=== PATIENT | male | born 1950 | race Hispanic/Latino ===

== ENCOUNTER 2017-05-18 08:27 | Day surgery (SDC) | payer MEDICAID ==
[2017-05-18 09:24] VITALS: BMI 27.1
[2017-05-18 09:46] VITALS: TEMP 98.2
[2017-05-18] MEDS ORDERED: Lactated Ringer's 500 ML IV ONE (10:59)
[2017-05-18] MEDS ORDERED: Propofol 10 mg/ml Inj (20 ML) ONE ×4 (11:19→12:21)
[2017-05-18] MEDS ORDERED: Lactated Ringer's 500 ML IV SCH (11:30)
[2017-05-18 13:17] VITALS: BP 116/63; PULSE 57; RESP 15; O2SAT 100
== END 2017-05-18 13:50 | disposition home or self-care (01) ==
LOC: C.ENDO 08:27
PROVIDERS: ATTEND Internal Medicine Gastroenterology
DX: K92.1 Melena (principal); D12.2 Benign neoplasm of ascending colon; D12.4 Benign neoplasm of descending colon; D12.7 Benign neoplasm of rectosigmoid junction; D12.3 Benign neoplasm of transverse colon
CPT/HCPCS: 45385; 88305; J2704; J3010; J7120

== ENCOUNTER 2017-12-04 11:00 | Inpatient (IN) | payer MEDICAID, MEDICARE ==
[2017-12-04 11:01] VITALS: BMI 26.9
--- NOTE | 2017-12-04 12:08 | C.PDOC ---
History Of Present Illness 67 y/o male with PMHx of Colon cancer with colectomy in 07/2017 presents to ED with complaints of urinary retention for 3 days. Pt notes it started with dribbling and straining and today the straining was not helping. Patient states this is the first time symptoms occurred. Denies fever, testicular pain, penile discharge, abdominal pain, back pain or any other complaints at this time. Time Seen by Provider: 12/04/17 11:25 Chief Complaint (Nursing): Male Genitourinary History Per: Patient History/Exam Limitations: no limitations Onset/Duration Of Symptoms: Days Current Symptoms Are (Timing): Still Present Associated Symptoms: Urinary Symptoms Past Medical History Reviewed: Historical Data, Nursing Documentation, Vital Signs Vital Signs: Last Vital Signs Temp 98 F 12/04/17 14:10 Pulse 88 12/04/17 14:10 Resp 20 12/04/17 14:10 BP 155/84 H 12/04/17 14:10 Pulse Ox 99 12/04/17 17:51 - Medical History PMH: HTN Other Surgeries: prostate cancer, CVA - [facility] Procedures INSERTION OF INFUSION DEVICE INTO ABD WALL, PERC APPROACH (08/04/17) RELEASE PERITONEUM, PERCUTANEOUS ENDOSCOPIC APPROACH (08/04/17) RESECTION OF SIGMOID COLON, OPEN APPROACH (08/04/17) ROBOTIC ASSISTED PROCEDURE OF TRUNK REGION, ENDO (08/04/17) Family History: States: No Known Family Hx - Social History Hx Alcohol Use: Yes Hx Substance Use: No - Immunization History Hx Tetanus Toxoid Vaccination: No Hx Influenza Vaccination: No Hx Pneumococcal Vaccination: No Review Of Systems Constitutional: Negative for: Fever, Chills Gastrointestinal: Negative for: Nausea, Vomiting, Abdominal Pain Genitourinary: Positive for: Other (urinary Retention ). Negative for: Penile Discharge, Penile Pain Musculoskeletal: Negative for: Back Pain Skin: Negative for: Rash Physical Exam - Physical Exam Appears: Non-toxic, Other (Uncomfortable) Skin: Warm, Dry, No Rash Head: Atraumatic, Normacephalic Eye(s): bilateral: Normal Inspection, EOMI Nose: Normal Oral Mucosa: Moist Neck: Normal ROM, Supple Chest: Symmetrical Cardiovascular: Rhythm Regular Respiratory: Normal Breath Sounds, No Accessory Muscle Use, No Rales, No Rhonchi , No Wheezing Gastrointestinal/Abdominal: Soft, Tenderness (suprapubic), Distention, No Guarding, No Rebound Back: No CVA Tenderness Extremity: Normal ROM, Capillary Refill (<2 seconds) Neurological/Psych: Oriented x3 ED Course And Treatment - Laboratory Results Result Diagrams: 12/04/17 12:16 12/04/17 12:16 O2 Sat by Pulse Oximetry: 99 (RA) Pulse Ox Interpretation: Normal Progress Note: Blood work and UA ordered. Devries inserted by RN, 1+ liter drained. Case discussed with Dr Ambrose, agreed upon plan and admission. Disposition - Disposition Disposition: HOSPITALIZED Disposition Time: 14:50 Condition: STABLE - Clinical Impression Clinical Impression: Urinary retention, Hyponatremia - PA / WAREHOUSE PERSON / Resident Statement MD/DO has reviewed & agrees with the documentation as recorded. - Scribe Statement The provider has reviewed the documentation as recorded by the Ulicesibkena Miguel All medical record entries made by the Liborio were at my direction and personally dictated by me. I have reviewed the chart and agree that the record accurately reflects my personal performance of the history, physical exam, medical decision making, and the department course for this patient. I have also personally directed, reviewed, and agree with the discharge instructions and disposition.
[2017-12-04 12:19] LABS: BASO # 0.1 K/uL (0.0-0.2); BASO % 0.6 % (0.0-2.0); EOS # 0.2 K/uL (0.0-0.7); EOS % 1.9 % (0.0-4.0); HEMOGLOBIN 12.9 g/dL (12.0-18.0); LYMPH # 1.6 K/uL (1.0-4.3); LYMPH % 19.8 % (20.0-40.0); MEAN CELL VOLUME 89.8 fL (80.0-94.0); MEAN CORPUSCULAR HEMOGLOBIN 32.1 pg (27.0-31.0); MEAN CORPUSCULAR HGB CONC 35.7 g/dL (33.0-37.0); MEAN PLATELET VOLUME 8.9 fL (7.2-11.7); MONO # 0.8 K/uL (0.0-0.8); MONO % 9.6 % (0.0-10.0); NEUT # 5.6 K/uL (1.8-7.0); NEUT % 68.1 % (50.0-75.0); RBC 4.02 Mil/uL (4.40-5.90); WHITE BLOOD COUNT 8.2 K/uL (4.8-10.8)
[2017-12-04 12:25] LABS: URINE BACTERIA MOD (<OCC); URINE BILIRUBIN NEGATIVE (NEGATIVE); URINE BLOOD 2+ (NEGATIVE); URINE CLARITY Clear (Clear); URINE COLOR Yellow (YELLOW); URINE GLUCOSE (UA) NORMAL (Normal); URINE LEUKOCYTE ESTERASE 2+ Leu/uL (Negative); URINE NITRATE NEGATIVE (NEGATIVE); URINE PROTEIN NEGATIVE (NEGATIVE); URINE UROBILINOGEN NORMAL mg/dL (0.2-1.0)
[2017-12-04 13:50] LABS: ALB/GLOB RATIO 1.3 (1.0-2.1); ALBUMIN 3.9 g/dL (3.5-5.0); ALT/SGPT 34 U/L (21-72); AST/SGOT 50 U/L (17-59); BLOOD UREA NITROGEN 12 mg/dL (9-20); CALCIUM 7.9 mg/dl (8.6-10.4); GFR AFRICAN-AMERICAN > 60; GFR NON-AFRICAN AMERICAN > 60
[2017-12-04] MEDS ORDERED: Sodium Chloride 0.9% 1,000 ML IV ONE (13:51)
--- NOTE | 2017-12-04 14:44 | CP.PCM.HP ---
History of Present Illness - History of Present Illness History of Present Illness: Admission Note for Dr. Ambrose's Service This is a 67 y/o male with a hx of colon CA s/p resection w/ Dr. Dave in July 2017 coming in with urinary retention and found to be hyponatremic 119 in the ED. Jamshid states that for the last 3 days he has had trouble urinating in the following way- the urine does not expel easily and he must strain to get the urine out. He notes a weak stream despite straining. He states that he feels like he needs to urinate constantly. He also notes that he has been drinking more beer than usual. He states that he drinks 3-6 beers twice a weekly. Jamshid does have a questionable history of BPH. Although he has never seen a urologist or taken any medications for this, he does remember his doctor telling him he had an enlarged prostate. PMD: Dr. Finney Oncologist: Dr. 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, HTN PSHx: colon resection 07/2017, R knee surgery post trauma, b/l cataracts Medications: Norvasc 5mg PO daily; Lisinopril-HCTZ Allergies: NKDA Social: drinks 3-6 beers 2x/week, smokes cigarettes when he drinks only x many years, no drug use, lives alone at home Family hx: Dad prostate CA, Mom of CVA, Twin brother of metastatic cancer 4months ago Present on Admission - Present on Admission Any Indicators Present on Admission: No History of DVT/PE: No History of Uncontrolled Diabetes: No Review of Systems - Constitutional Constitutional: absent: Chills, Fever, Weight Loss - EENT Eyes: absent: Blurred Vision, Change in Vision Nose/Mouth/Throat: absent: Nasal Congestion, Nasal Discharge - Cardiovascular Cardiovascular: absent: Chest Pain, Diaphoresis, Dyspnea - Respiratory Respiratory: absent: Cough, Dyspnea - Gastrointestinal Gastrointestinal: absent: Abdominal Pain, Constipation, Diarrhea - Genitourinary Genitourinary: As Per HPI, Urinary Frequency, Urinary Hesitance, Bladder Distension. absent: Dysuria, Flank Pain, Hematuria, Pyuria - Musculoskeletal Musculoskeletal: absent: Back Pain, Joint Swelling - Neurological Neurological: absent: Confusion, Dizziness, Syncope, Vertigo Past Patient History - Infectious Disease Hx of Infectious Diseases: None - Past Medical History & Family History Past Medical History?: Yes - Past Social History Smoking Status: Current Some Days Smoker - CARDIAC Hx Hypertension: Yes - PULMONARY Hx Respiratory Disorders: No - NEUROLOGICAL Hx Neurological Disorder: No - HEENT Hx HEENT Problems: Yes Hx Cataracts: Yes (TWILA. REMOVED) - RENAL Hx Chronic Kidney Disease: No - ENDOCRINE/METABOLIC Hx Endocrine Disorders: No - HEMATOLOGICAL/ONCOLOGICAL Hx Blood Disorders: Yes Hx Cancer: Yes (COLON) - INTEGUMENTARY Hx Dermatological Problems: No - GASTROINTESTINAL Hx Gastrointestinal Disorders: Yes - GENITOURINARY/GYNECOLOGICAL Hx Genitourinary Disorders: No - PSYCHIATRIC Hx Substance Use: No - SURGICAL HISTORY Other/Comment: colon ca removal - ANESTHESIA Hx Anesthesia: Yes Hx Anesthesia Reactions: No Hx Malignant Hyperthermia: No Meds Allergies/Adverse Reactions: Allergies Allergy/AdvReac Type Severity Reaction Status Date / Time No Known Allergies Allergy Verified 05/18/17 09:22 Physical Exam - Head Exam Head Exam: ATRAUMATIC, NORMOCEPHALIC - Eye Exam Eye Exam: EOMI, Normal appearance - ENT Exam ENT Exam: Mucous Membranes Moist - Respiratory Exam Respiratory Exam: Clear to Auscultation Bilateral, NORMAL BREATHING PATTERN. absent: Rhonchi, Wheezes - Cardiovascular Exam Cardiovascular Exam: REGULAR RHYTHM, +S1, +S2 - GI/Abdominal Exam GI & Abdominal Exam: Normal Bowel Sounds, Soft. absent: Distended, Tenderness Additional comments: suprapubic fullness sensation with palpation - Exam Additional comments: ryan in place - Extremities Exam Extremities exam: Negative for: pedal edema, tenderness - Back Exam Back exam: absent: CVA tenderness (L), CVA tenderness (R) - Neurological Exam Neurological exam: Alert, Oriented x3 - Psychiatric Exam Psychiatric exam: Normal Affect, Normal Mood - Skin Skin Exam: Dry, Warm Results - Vital Signs Recent Vital Signs: Last Vital Signs Temp 98 F 12/04/17 14:10 Pulse 88 12/04/17 14:10 Resp 20 12/04/17 14:10 BP 155/84 H 12/04/17 14:10 Pulse Ox 99 12/04/17 14:10 - Labs Result Diagrams: 12/04/17 12:16 12/04/17 12:16 Labs: Laboratory Results - last 24 hr 12/04/17 12/04/17 12/04/17 12:16 12:16 12:16 WBC 8.2 RBC 4.02 L Hgb 12.9 Hct 36.1 MCV 89.8 MCH 32.1 H MCHC 35.7 RDW 13.0 Plt Count 183 MPV 8.9 Neut % (Auto) 68.1 Lymph % (Auto) 19.8 L Dawes % (Auto) 9.6 Eos % (Auto) 1.9 Baso % (Auto) 0.6 Neut # 5.6 Lymph # 1.6 Dawes # 0.8 Eos # 0.2 Baso # 0.1 Sodium 119 L* Potassium 3.6 Chloride 86 L Carbon Dioxide 24 Anion Gap 13 BUN 12 Creatinine 0.9 Est GFR ( Amer) > 60 Est GFR (Non-Af Amer) > 60 Random Glucose 88 Calcium 7.9 L Total Bilirubin 1.6 H AST 50 ALT 34 Alkaline Phosphatase 73 Total Protein 6.9 Albumin 3.9 Globulin 3.1 Albumin/Globulin Ratio 1.3 Urine Color Yellow Urine Clarity Clear Urine pH 6.0 Ur Specific [place] 1.005 Urine Protein Negative Urine Glucose (UA) Normal Urine Ketones 1+ H Urine Blood 2+ H Urine Nitrate Negative Urine Bilirubin Negative Urine Urobilinogen Normal Ur Leukocyte Esterase 2+ H Urine WBC (Auto) 12 H Urine RBC (Auto) 5 H Urine Bacteria Mod H Assessment & Plan - Assessment and Plan (Free Text) Assessment: 67 year old M with hx of colon CA s/p resection presenting with urinary retention and found to be hyponatremic at 119 in the ED Plan: Beer Potomania 119 on admission; in the past 134-138 Fluid restrict Follow up BMP Follow up urine lytes, urine osm, serum osm EKG on admission reviewed Admission to [facility] Librium Taper- 50mg PO Q8hrs x3days, then 25mg PO Q8hrs x3days Pt denies any hx of w/d sx's Urinary Retention CT abdomen pelvis Renal cysts- recommending u/s for evaluation Enlarged prostate Urinary bladder containing air- possibly due to instrument introduction B/L inguinal hernias Bowel wall thickening adjacent to bladder Follow up renal U/S F/u PSA UA +2 leukocyte esterase, 12 WBC follow up urine cx Urology consult placed- Dr. Carlos Iqbal- f/u recs Ryan placed in ED with >1.5L output HTN Continue home meds Norvasc 5mg PO daily Lisinopril 20mg PO daily (hold for hyponatremia) HCTZ 25mg PO daily (hold for hyponatremia) Consider metoprolol if patient is hypertensive Hx of colon CA s/p resection Resection done in July [address] Dave Follow up CT abdomen pelvis Prophylaxis Protonix 40mg PO daily Lovenox 40U SC daily Case discussed with Dr. Ambrose
[2017-12-04 15:29] LABS: OSMOLALITY,URINE 210 mosm/kg (300-1000)
--- NOTE | 2017-12-04 15:54 | CT ---
PROCEDURE: CT Abdomen and Pelvis without Oral or IV contrast. HISTORY: pain, urinary retention COMPARISON: CT of the chest, abdomen, and pelvis performed 06/07/17 TECHNIQUE: Contiguous axial images of the abdomen and pelvis. No oral or IV contrast administered. Coronal and Sagittal reformats generated and reviewed. Radiation dose: Total exam DLP = 626.47 mGy-cm. This CT exam was performed using one or more of the following dose reduction techniques: Automated exposure control, adjustment of the mA and/or kV according to patient size, and/or use of iterative reconstruction technique. FINDINGS: There is limited evaluation of the solid organs without the administration of IV contrast. LOWER THORAX: No visible consolidation, pleural effusion, or pneumothorax. LIVER: Unremarkable unenhanced appearance. GALLBLADDER AND BILE DUCTS: Unremarkable unenhanced appearance. PANCREAS: Unremarkable unenhanced appearance. SPLEEN: Unremarkable unenhanced appearance. ADRENALS: Unremarkable unenhanced appearance. KIDNEYS AND URETERS: No hydronephrosis or obstructing renal calculus. Numerous bilateral low-density renal lesions, the largest exophytic and measuring approximately 5.0 cm at the left upper pole, appear cystic. BLADDER: Childress catheter within a decompressed urinary bladder which contains air, possibly due to recent instrumentation. REPRODUCTIVE: Enlarged prostate gland. APPENDIX: The appendix appears within normal limits of caliber. No secondary signs of acute appendicitis. BOWEL: The stomach is nondistended. Lack of oral contrast limits evaluation for bowel pathology. The bowel loops appear within normal limits of caliber without evidence of intestinal obstruction. Bowel loop adjacent to the urinary bladder appears thick walled; correlate clinically for infectious or inflammatory etiologies. Anastomotic suture material noted at the level of the rectosigmoid colon. PERITONEUM: No significant free fluid. No definite free air. LYMPH NODES: No bulky lymphadenopathy identified. VASCULATURE: No aortic aneurysm. BONES: Degenerative changes. OTHER FINDINGS: [id number]-right fat containing inguinal hernias. IMPRESSION: Numerous bilateral renal hypodensities, likely cysts. Renal ultrasound may be considered further characterization. Bowel loop adjacent to the urinary bladder appears thick walled; correlate clinically for infectious or inflammatory etiologies. Anastomotic suture material noted at the level of the rectosigmoid colon. Childress catheter within a decompressed urinary bladder which contains air, possibly due to recent instrumentation. Correlate clinically including urinalysis. Eswg-btlrobd-brtu-right fat containing inguinal hernias. Enlarged prostate gland. Recommend correlation with PSA. Additional findings as above.
[2017-12-04 18:18] LABS: BLOOD UREA NITROGEN 13 mg/dL (9-20); GFR AFRICAN-AMERICAN > 60; GFR NON-AFRICAN AMERICAN > 60
--- NOTE | 2017-12-04 19:36 | US ---
EXAM: US Retroperitoneal Complete, Renal EXAM DATE/TIME: 12/04/2017 4:06 PM CLINICAL HISTORY: 67 years old, male; Signs and symptoms; Other: Urinary retention; Prior surgery; Surgery date: 1-6 months; Surgery type: Colon TECHNIQUE: Real-time ultrasound of the retroperitoneum (complete) with image documentation. COMPARISON: There are no prior studies for comparison. FINDINGS: Aorta: Visualized portion of the aorta is normal in caliber Right kidney: Right kidney measures approximately 11.3 x 5.5 x 5.3 cm. There is pelvic lipomatosis. There is a mildly prominent extrarenal pelvis. There is a 1.9 by 2 x 2 cm upper pole simple cyst. There is an exophytic 4.1 x 4.3 x 4.2 cm simple right lower pole cyst area and Left kidney: Left kidney measures approximately 11 x 6.5 x 4.9 cm. There is pelvic sinus lipomatosis. There are simple exophytic renal cysts. Upper pole cyst measures 7 x 5.9 cm. Midpole cyst measures 1.6 x 1.2 x 1.7 cm. There is intrarenal simple cyst, 2 x 1.8 x 2.2 cm. There is mildly prominent extrarenal pelvis. Bladder: Bladder is empty with a Childress catheter. IMPRESSION: Bilateral simple renal cysts, bilateral extrarenal pelvi; empty bladder with Childress catheter
[2017-12-05 04:37] LABS: BASO % 0.4 % (0.0-2.0); EOS # 0.2 K/uL (0.0-0.7); EOS % 2.4 % (0.0-4.0); HEMOGLOBIN 12.9 g/dL (12.0-18.0); LYMPH # 1.5 K/uL (1.0-4.3); LYMPH % 19.5 % (20.0-40.0); MEAN CELL VOLUME 90.9 fL (80.0-94.0); MEAN CORPUSCULAR HEMOGLOBIN 31.8 pg (27.0-31.0); MEAN CORPUSCULAR HGB CONC 34.9 g/dL (33.0-37.0); MEAN PLATELET VOLUME 8.4 fL (7.2-11.7); MONO # 0.7 K/uL (0.0-0.8); MONO % 9.2 % (0.0-10.0); NEUT # 5.4 K/uL (1.8-7.0); NEUT % 68.5 % (50.0-75.0); RBC 4.06 Mil/uL (4.40-5.90); RED CELL DISTRIBUTION WIDTH 13.3 % (11.5-14.5); WHITE BLOOD COUNT 7.9 K/uL (4.8-10.8)
[2017-12-05 05:12] LABS: ALB/GLOB RATIO 1.3 (1.0-2.1); ALBUMIN 3.9 g/dL (3.5-5.0); ALT/SGPT 34 U/L (21-72); AST/SGOT 39 U/L (17-59); BLOOD UREA NITROGEN 12 mg/dL (9-20); CALCIUM 7.5 mg/dl (8.6-10.4); GFR AFRICAN-AMERICAN > 60; GFR NON-AFRICAN AMERICAN > 60
[2017-12-05] MEDS ORDERED: Potassium Chloride 20 mEq ER Tab PO ONE ×3 (07:39→09:46)
[2017-12-05] MEDS: Enoxaparin 40 mg Syringe SC SCH (09:43)
[2017-12-05] MEDS ORDERED: Enoxaparin 40 mg Syringe ONE (09:44)
[2017-12-05] MEDS: Pantoprazole 40 mg EC Tab PO SCH (09:44)
[2017-12-05] MEDS ORDERED: Pantoprazole 40 mg EC Tab PO ONE (09:46)
[2017-12-05 10:41] LABS: MAGNESIUM 2.1 mg/dL (1.6-2.3)
--- NOTE | 2017-12-05 10:54 | CP.PCM.CON ---
Past Patient History - Infectious Disease Hx of Infectious Diseases: None - Past Medical History & Family History Past Medical History?: Yes - Past Social History Smoking Status: occasional - CARDIAC Hx Hypertension: Yes - PULMONARY Hx Respiratory Disorders: No - NEUROLOGICAL Hx Neurological Disorder: No - HEENT Hx HEENT Problems: Yes Hx Cataracts: Yes (TWILA. REMOVED) - RENAL Hx Chronic Kidney Disease: No - ENDOCRINE/METABOLIC Hx Endocrine Disorders: No - HEMATOLOGICAL/ONCOLOGICAL Hx Blood Disorders: Yes Hx Cancer: Yes (COLON) - INTEGUMENTARY Hx Dermatological Problems: No - MUSCULOSKELETAL/RHEUMATOLOGICAL Hx Falls: No - GASTROINTESTINAL Hx Gastrointestinal Disorders: Yes - GENITOURINARY/GYNECOLOGICAL Hx Genitourinary Disorders: No - PSYCHIATRIC Hx Substance Use: Yes (smoked pot when at 20 years old) - SURGICAL HISTORY Other/Comment: colon ca removal - ANESTHESIA Hx Anesthesia: Yes Hx Anesthesia Reactions: No Hx Malignant Hyperthermia: No Meds Allergies/Adverse Reactions: Allergies Allergy/AdvReac Type Severity Reaction Status Date / Time No Known Allergies Allergy Verified 05/18/17 09:22 - Medications Medications: Current Medications Acetaminophen (Tylenol 325mg Tab) 650 mg PO Q6 PRN PRN Reason: Pain, moderate (4-7) Amlodipine Besylate (Norvasc) 5 mg PO DAILY [facility] Last Admin: 12/05/17 09:43 Dose: 5 mg Chlordiazepoxide (Librium) 50 mg PO Q8 [facility] Stop: 12/07/17 16:31 Last Admin: 12/05/17 06:22 Dose: Not Given Chlordiazepoxide (Librium) 25 mg PO Q8 [facility] Stop: 12/11/17 16:31 Enoxaparin Sodium (Lovenox) 40 mg SC DAILY [facility] Last Admin: 12/05/17 09:43 Dose: 40 mg Ondansetron HCl (Zofran Inj) 4 mg IVP Q6 PRN PRN Reason: Nausea/Vomiting Pantoprazole Sodium (Protonix Ec Tab) 40 mg PO DAILY [facility] Last Admin: 12/05/17 09:44 Dose: 40 mg Results - Vital Signs Recent Vital Signs: Last Vital Signs Temp 98.3 F 12/05/17 10:15 Pulse 88 12/05/17 10:15 Resp 15 12/05/17 10:15 BP 140/74 12/05/17 10:15 Pulse Ox 100 12/05/17 08:10 - Labs Result Diagrams: 12/05/17 04:32 12/05/17 04:32 Labs: Laboratory Results - last 24 hr 12/04/17 12/04/17 12/04/17 12:16 12:16 12:16 WBC 8.2 RBC 4.02 L Hgb 12.9 Hct 36.1 MCV 89.8 MCH 32.1 H MCHC 35.7 RDW 13.0 Plt Count 183 MPV 8.9 Neut % (Auto) 68.1 Lymph % (Auto) 19.8 L B[place] % (Auto) 9.6 Eos % (Auto) 1.9 Baso % (Auto) 0.6 Neut # 5.6 Lymph # 1.6 Bland # 0.8 Eos # 0.2 Baso # 0.1 Sodium 119 L* Potassium 3.6 Chloride 86 L Carbon Dioxide 24 Anion Gap 13 BUN 12 Creatinine 0.9 Est GFR ( Amer) > 60 Est GFR (Non-Af Amer) > 60 Random Glucose 88 Serum Osmolality Calcium 7.9 L Phosphorus Magnesium Total Bilirubin 1.6 H AST 50 ALT 34 Alkaline Phosphatase 73 Total Protein 6.9 Albumin 3.9 Globulin 3.1 Albumin/Globulin Ratio 1.3 Urine Color Yellow Urine Clarity Clear Urine pH 6.0 Ur Specific [place] 1.005 Urine Protein Negative Urine Glucose (UA) Normal Urine Ketones 1+ H Urine Blood 2+ H Urine Nitrate Negative Urine Bilirubin Negative Urine Urobilinogen Normal Ur Leukocyte Esterase 2+ H Urine WBC (Auto) 12 H Urine RBC (Auto) 5 H Urine Bacteria Mod H Urine Osmolality Ur Random Sodium 12/04/17 12/04/17 12/04/17 14:14 14:14 16:02 WBC RBC Hgb Hct MCV MCH MCHC RDW Plt Count MPV Neut % (Auto) Lymph % (Auto) Bland % (Auto) Eos % (Auto) Baso % (Auto) Neut # Lymph # Bland # Eos # Baso # Sodium Potassium Chloride Carbon Dioxide Anion Gap BUN Creatinine Est GFR ( Amer) Est GFR (Non-Af Amer) Random Glucose Serum Osmolality 267 L Calcium Phosphorus Magnesium Total Bilirubin AST ALT Alkaline Phosphatase Total Protein Albumin Globulin Albumin/Globulin Ratio Urine Color Urine Clarity Urine pH Ur Specific [place] Urine Protein Urine Glucose (UA) Urine Ketones Urine Blood Urine Nitrate Urine Bilirubin Urine Urobilinogen Ur Leukocyte Esterase Urine WBC (Auto) Urine RBC (Auto) Urine Bacteria Urine Osmolality 210 L Ur Random Sodium 21 18 12/04/17 12/05/17 12/05/17 17:59 04:32 04:32 WBC 7.9 RBC 4.06 L Hgb 12.9 Hct 36.9 MCV 90.9 MCH 31.8 H MCHC 34.9 RDW 13.3 Plt Count 194 MPV 8.4 Neut % (Auto) 68.5 Lymph % (Auto) 19.5 L B[place] % (Auto) 9.2 Eos % (Auto) 2.4 Baso % (Auto) 0.4 Neut # 5.4 Lymph # 1.5 Bland # 0.7 Eos # 0.2 Baso # 0.0 Sodium 123 L 128 L Potassium 3.2 L 3.4 L Chloride 92 L 94 L Carbon Dioxide 25 26 Anion Gap 9 L 11 BUN 13 12 Creatinine 0.9 0.9 Est GFR ( Amer) > 60 > 60 Est GFR (Non-Af Amer) > 60 > 60 Random Glucose 153 H 92 Serum Osmolality Calcium 8.0 L 7.5 L Phosphorus 3.9 Magnesium 2.1 Total Bilirubin 1.1 AST 39 ALT 34 Alkaline Phosphatase 66 Total Protein 6.8 Albumin 3.9 Globulin 2.9 Albumin/Globulin Ratio 1.3 Urine Color Urine Clarity Urine pH Ur Specific [place] Urine Protein Urine Glucose (UA) Urine Ketones Urine Blood Urine Nitrate Urine Bilirubin Urine Urobilinogen Ur Leukocyte Esterase Urine WBC (Auto) Urine RBC (Auto) Urine Bacteria Urine Osmolality Ur Random Sodium Assessment & Plan - Assessment and Plan (Free Text) Assessment: IMP: urinary retention hyponatremia Full note to be dictated YS - Date & Time Date: 12/05/17 Time: 09:50
--- NOTE | 2017-12-05 11:46 | CP.PCM.PN ---
Subjective - Date & Time of Evaluation Date of Evaluation: 12/05/17 Time of Evaluation: 11:45 - Subjective Subjective: Medicine Progress Note: Dr Ambrose Service Patient seen and examined at bedside. Per nursing no acute events overnight. Patient is doing well, ryan in draining clear yellow urine. Denies any discomfort. Denies tremors, headaches, dizziness, cp, palpitations, sob, abdominal pain, urinary symptoms, changes in bowel habits. Objective - Vital Signs/Intake and Output Vital Signs (last 24 hours): Temp Pulse Resp BP Pulse Ox 98.3 F 88 15 140/74 100 12/05/17 10:15 12/05/17 10:15 12/05/17 10:15 12/05/17 10:15 12/05/17 08:10 Intake and Output: 12/05/17 12/05/17 06:59 18:59 Output Total 900 175 Balance -900 -175 - Medications Medications: Current Medications Acetaminophen (Tylenol 325mg Tab) 650 mg PO Q6 PRN PRN Reason: Pain, moderate (4-7) Amlodipine Besylate (Norvasc) 5 mg PO DAILY [facility] Last Admin: 12/05/17 09:43 Dose: 5 mg Chlordiazepoxide (Librium) 50 mg PO Q8 [facility] Stop: 12/07/17 16:31 Last Admin: 12/05/17 06:22 Dose: Not Given Chlordiazepoxide (Librium) 25 mg PO Q8 [facility] Stop: 12/11/17 16:31 Enoxaparin Sodium (Lovenox) 40 mg SC DAILY [facility] Last Admin: 12/05/17 09:43 Dose: 40 mg Ondansetron HCl (Zofran Inj) 4 mg IVP Q6 PRN PRN Reason: Nausea/Vomiting Pantoprazole Sodium (Protonix Ec Tab) 40 mg PO DAILY [facility] Last Admin: 12/05/17 09:44 Dose: 40 mg - Labs Labs: 12/05/17 04:32 12/05/17 04:32 - Constitutional Appears: Well, No Acute Distress - Head Exam Head Exam: ATRAUMATIC, NORMAL INSPECTION - Eye Exam Eye Exam: EOMI, Normal appearance - ENT Exam ENT Exam: Mucous Membranes Moist - Neck Exam Neck Exam: Full ROM - Respiratory Exam Respiratory Exam: Clear to Ausculation Bilateral, NORMAL BREATHING PATTERN. absent: Rales, Rhonchi, Wheezes - Cardiovascular Exam Cardiovascular Exam: REGULAR RHYTHM, +S1, +S2 - GI/Abdominal Exam GI & Abdominal Exam: Soft, Normal Bowel Sounds. absent: Guarding, Rigid, Tenderness - Exam Additional comments: Ryan in draining yellow urine - Extremities Exam Extremities Exam: Normal Inspection. absent: Calf Tenderness - Back Exam Back Exam: NORMAL INSPECTION - Neurological Exam Neurological Exam: Alert, Awake, CN II-XII Intact, Oriented x3 - Psychiatric Exam Psychiatric exam: Normal Affect, Normal Mood - Skin Skin Exam: Dry, Normal Color, Warm Assessment and Plan - Assessment and Plan (Free Text) Assessment: 1) Beer Potomania * Monitor on telemetry * Sodium 119 on admission; in the past 134-138 * Today Sodium is 128 (improving) * Urine Sodium 21, Urine Osm 210 * Continue Fluid restriction * Follow up BMP * EKG on admission reviewed * Librium Taper- 50mg PO Q8hrs x3days, then 25mg PO Q8hrs x3days * Pt denies any hx of withdrawal sx's 2) Urinary Retention * CT abdomen pelvis: Renal cysts- recommending u/s for evaluation, Enlarged prostate, Urinary bladder containing air- possibly due to instrument introduction, B/L inguinal hernias, Bowel wall thickening adjacent to bladder * Bladder US: bilateral simple renal cysts, bilateral extrarenal pelvis; empty bladder with ryan catheter * F/u PSA (free and total) * UA +2 leukocyte esterase, 12 WBC * Follow up urine cx * Urology consult placed- Dr. Carlos Iqbal- f/u recs * Ryan placed in ED with >1.5L output 3) History of HTN * Continue home meds: Norvasc 5mg PO daily, Lisinopril 20mg PO daily (hold for hyponatremia), HCTZ 25mg PO daily (hold for hyponatremia) * Consider metoprolol if patient is hypertensive 4) Hx of colon CA s/p resection * Resection done in July [address] Dave 5) Electrolyte Abnormalities * Potassium 3.4, repleted * Magnesium 1.5, repleted * Continue to monitor Prophylaxis Protonix 40mg PO daily Lovenox 40U SC daily Case discussed with Dr. Ambrose
[2017-12-05 12:17] LABS: URINE BACTERIA RARE (<OCC); URINE BILIRUBIN NEGATIVE (NEGATIVE); URINE BLOOD 1+ (NEGATIVE); URINE CLARITY Clear (Clear); URINE COLOR Yellow (YELLOW); URINE GLUCOSE (UA) NORMAL (Normal); URINE LEUKOCYTE ESTERASE 3+ Leu/uL (Negative); URINE NITRATE NEGATIVE (NEGATIVE); URINE PROTEIN 2+ mg/dL (NEGATIVE)
[2017-12-06 06:56] LABS: BASO # 0.1 K/uL (0.0-0.2); EOS # 0.2 K/uL (0.0-0.7); HEMOGLOBIN 14.5 g/dL (12.0-18.0); LYMPH # 2.9 K/uL (1.0-4.3); MEAN CELL VOLUME 92.8 fL (80.0-94.0); MEAN CORPUSCULAR HGB CONC 34.4 g/dL (33.0-37.0); MONO # 0.7 K/uL (0.0-0.8); NEUT # 4.3 K/uL (1.8-7.0); NRBC % 0.1 % (0.0-2.0); RBC 4.53 Mil/uL (4.40-5.90); RED CELL DISTRIBUTION WIDTH 13.5 % (11.5-14.5); WHITE BLOOD COUNT 8.2 K/uL (4.8-10.8)
[2017-12-06 07:26] LABS: ALB/GLOB RATIO 1.2 (1.0-2.1); ALT/SGPT 38 U/L (21-72); AST/SGOT 33 U/L (17-59); BLOOD UREA NITROGEN 15 mg/dL (9-20); CALCIUM 8.1 mg/dl (8.6-10.4); GFR AFRICAN-AMERICAN > 60; GFR NON-AFRICAN AMERICAN > 60
[2017-12-06] MEDS: Pantoprazole 40 mg EC Tab PO SCH (10:14)
[2017-12-06] MEDS: Enoxaparin 40 mg Syringe SC SCH (10:14)
--- NOTE | 2017-12-06 16:08 | CP.PCM.PN ---
Subjective - Date & Time of Evaluation Date of Evaluation: 12/06/17 Time of Evaluation: 16:06 - Subjective Subjective: Medicine Progress Note: Dr Ambrose Service Patient seen and examined at bedside. Per nursing no acute events overnight. Patient is doing well, offers no complaints. Denies tremors, headaches, dizziness, cp, palpitations, sob, abdominal pain, urinary symptoms, changes in bowel habits. Urine cx grew back gram negative rods, started on Rocephin. Objective - Vital Signs/Intake and Output Vital Signs (last 24 hours): Temp Pulse Resp BP Pulse Ox 98.2 F 73 16 125/66 100 12/06/17 14:00 12/06/17 15:10 12/06/17 15:10 12/06/17 15:10 12/06/17 08:00 Intake and Output: 12/06/17 12/06/17 06:59 18:59 Intake Total 480 Output Total 500 Balance -20 - Medications Medications: Current Medications Acetaminophen (Tylenol 325mg Tab) 650 mg PO Q6 PRN PRN Reason: Pain, moderate (4-7) Amlodipine Besylate (Norvasc) 5 mg PO DAILY [facility] Last Admin: 12/06/17 10:14 Dose: 5 mg Chlordiazepoxide (Librium) 50 mg PO Q8 [facility] Stop: 12/07/17 16:31 Last Admin: 12/06/17 13:27 Dose: Not Given Chlordiazepoxide (Librium) 25 mg PO Q8 [facility] Stop: 12/11/17 16:31 Enoxaparin Sodium (Lovenox) 40 mg SC DAILY [facility] Last Admin: 12/06/17 10:14 Dose: 40 mg Ceftriaxone Sodium 1 gm/ (Sodium Chloride) 100 mls @ 100 mls/hr IVPB Q24H [facility] Last Admin: 12/06/17 13:26 Dose: 100 mls/hr Ondansetron HCl (Zofran Inj) 4 mg IVP Q6 PRN PRN Reason: Nausea/Vomiting Pantoprazole Sodium (Protonix Ec Tab) 40 mg PO DAILY [facility] Last Admin: 12/06/17 10:14 Dose: 40 mg - Labs Labs: 12/06/17 06:41 12/06/17 06:41 - Constitutional Appears: Well, No Acute Distress - Head Exam Head Exam: ATRAUMATIC, NORMAL INSPECTION, NORMOCEPHALIC - Eye Exam Eye Exam: EOMI, Normal appearance - ENT Exam ENT Exam: Mucous Membranes Moist - Neck Exam Neck Exam: Full ROM - Respiratory Exam Respiratory Exam: Clear to Ausculation Bilateral, NORMAL BREATHING PATTERN. absent: Rales, Rhonchi, Wheezes - Cardiovascular Exam Cardiovascular Exam: REGULAR RHYTHM, +S1, +S2 - GI/Abdominal Exam GI & Abdominal Exam: Soft, Normal Bowel Sounds. absent: Guarding, Rigid, Tenderness - Exam Additional comments: Ryan in draining yellow urine - Extremities Exam Extremities Exam: Normal Inspection - Neurological Exam Neurological Exam: Alert, Awake, Oriented x3 - Psychiatric Exam Psychiatric exam: Normal Affect, Normal Mood - Skin Skin Exam: Dry, Normal Color, Warm Assessment and Plan - Assessment and Plan (Free Text) Assessment: 1) Beer Potomania * Will discontinue telemetry * Sodium 119 on admission; in the past 134-138 * Today Sodium is 134 * Urine Sodium 21, Urine Osm 210 * EKG on admission reviewed * Will discontinue librium as patient not having signs of withdrawal and has not required any librium 2) Urinary Retention * CT abdomen pelvis: Renal cysts- recommending u/s for evaluation, Enlarged prostate, Urinary bladder containing air- possibly due to instrument introduction, B/L inguinal hernias, Bowel wall thickening adjacent to bladder * Bladder US: bilateral simple renal cysts, bilateral extrarenal pelvis; empty bladder with ryan catheter * F/u PSA (free and total) * UA +2 leukocyte esterase, 12 WBC * Urine cx growing gram negative rods, f/u sensitivites * Started on Rocephin 1gm daily * Urology consult placed- Dr. Carlos Iqbal- f/u recs * Ryan placed in ED with >1.5L output 3) History of HTN * Continue home meds: Norvasc 5mg PO daily * Lisinopril 20mg PO daily (hold for hyponatremia), * HCTZ 25mg PO daily (hold for hyponatremia) * Currently normatensive, will continue to monitor 4) Hx of colon CA s/p resection * Resection done in July [address] Dave 5) Electrolyte Abnormalities * Potassium 3.6 * Continue to monitor Prophylaxis Protonix 40mg PO daily Lovenox 40U SC daily Case discussed with Dr. Ambrose
[2017-12-06 22:11] LABS: TOTAL PSA 14.5 ng/mL (< or = 4.0)
--- NOTE | 2017-12-06 23:12 | CARD ---
APPROVED REPORT EKG Measurement Heart [id number] <Conclusion> Normal sinus rhythm Normal ECG
[2017-12-07 06:46] LABS: BASO # 0.1 K/uL (0.0-0.2); BASO % 0.9 % (0.0-2.0); EOS # 0.3 K/uL (0.0-0.7); EOS % 4.5 % (0.0-4.0); LYMPH # 1.6 K/uL (1.0-4.3); LYMPH % 27.7 % (20.0-40.0); MEAN CELL VOLUME 91.8 fL (80.0-94.0); MEAN CORPUSCULAR HEMOGLOBIN 31.6 pg (27.0-31.0); MEAN CORPUSCULAR HGB CONC 34.5 g/dL (33.0-37.0); MEAN PLATELET VOLUME 8.9 fL (7.2-11.7); MONO # 0.6 K/uL (0.0-0.8); MONO % 9.6 % (0.0-10.0); NEUT # 3.4 K/uL (1.8-7.0); NEUT % 57.3 % (50.0-75.0); RBC 4.12 Mil/uL (4.40-5.90); RED CELL DISTRIBUTION WIDTH 13.4 % (11.5-14.5); WHITE BLOOD COUNT 5.9 K/uL (4.8-10.8)
[2017-12-07 07:05] LABS: ALB/GLOB RATIO 1.1 (1.0-2.1); ALBUMIN 3.5 g/dL (3.5-5.0); ALT/SGPT 32 U/L (21-72); AST/SGOT 24 U/L (17-59); BLOOD UREA NITROGEN 13 mg/dL (9-20); CALCIUM 7.8 mg/dl (8.6-10.4); GFR AFRICAN-AMERICAN > 60; GFR NON-AFRICAN AMERICAN > 60
[2017-12-07] MEDS: Enoxaparin 40 mg Syringe SC SCH (10:20)
[2017-12-07] MEDS: Pantoprazole 40 mg EC Tab PO SCH (10:21)
--- NOTE | 2017-12-07 16:28 | CP.PCM.PN ---
Subjective - Date & Time of Evaluation Date of Evaluation: 12/07/17 Time of Evaluation: 16:25 - Subjective Subjective: Medicine Progress Note: Hospitalist Service Patient seen and examined at bedside. Per nursing no acute events overnight. Patient is doing well, offers no complaints at this time. Urine cx grew Klebsiella Ozaenae. Denies headaches, dizziness, cp, palpitations, sob, abdominal pain, urinary symptoms, changes in bowel habits. Objective - Vital Signs/Intake and Output Vital Signs (last 24 hours): Temp Pulse Resp BP Pulse Ox 98.6 F 76 20 112/73 100 12/07/17 16:00 12/07/17 04:00 12/07/17 04:00 12/07/17 04:00 12/07/17 04:00 - Medications Medications: Current Medications Acetaminophen (Tylenol 325mg Tab) 650 mg PO Q6 PRN PRN Reason: Pain, moderate (4-7) Amlodipine Besylate (Norvasc) 5 mg PO DAILY [facility] Last Admin: 12/07/17 10:21 Dose: 5 mg Enoxaparin Sodium (Lovenox) 40 mg SC DAILY [facility] Last Admin: 12/07/17 10:20 Dose: 40 mg Ceftriaxone Sodium 1 gm/ (Sodium Chloride) 100 mls @ 100 mls/hr IVPB Q24H [facility] Last Admin: 12/07/17 14:08 Dose: 100 mls/hr Ondansetron HCl (Zofran Inj) 4 mg IVP Q6 PRN PRN Reason: Nausea/Vomiting Pantoprazole Sodium (Protonix Ec Tab) 40 mg PO DAILY [facility] Last Admin: 12/07/17 10:21 Dose: 40 mg - Labs Labs: 12/07/17 06:36 12/07/17 06:36 - Constitutional Appears: Non-toxic, No Acute Distress - Head Exam Head Exam: ATRAUMATIC, NORMAL INSPECTION - Eye Exam Eye Exam: EOMI, Normal appearance - ENT Exam ENT Exam: Mucous Membranes Moist - Neck Exam Neck Exam: Full ROM - Respiratory Exam Respiratory Exam: Clear to Ausculation Bilateral, NORMAL BREATHING PATTERN. absent: Rales, Rhonchi, Wheezes - Cardiovascular Exam Cardiovascular Exam: REGULAR RHYTHM, +S1, +S2 - GI/Abdominal Exam GI & Abdominal Exam: Soft, Normal Bowel Sounds. absent: Guarding, Rigid, Tenderness - Exam Additional comments: Ryan in draining yellow urine - Extremities Exam Extremities Exam: Full ROM - Back Exam Back Exam: NORMAL INSPECTION - Neurological Exam Neurological Exam: Alert, Awake, Oriented x3 - Psychiatric Exam Psychiatric exam: Normal Affect, Normal Mood - Skin Skin Exam: Dry, Normal Color, Warm Assessment and Plan - Assessment and Plan (Free Text) Assessment: 1) Beer Potomania (resolved) * Sodium 119 on admission; in the past 134-138 * Today Sodium is 134 * Urine Sodium 21, Urine Osm 210 * EKG on admission reviewed 2) Urinary Retention * CT abdomen pelvis: Renal cysts- recommending u/s for evaluation, Enlarged prostate, Urinary bladder containing air- possibly due to instrument introduction, B/L inguinal hernias, Bowel wall thickening adjacent to bladder * Bladder US: bilateral simple renal cysts, bilateral extrarenal pelvis; empty bladder with ryan catheter * Total PSA 14.5, Free PSA 1.4 * UA +2 leukocyte esterase, 12 WBC * Urine cx growing Klebsiella Ozaenae, pansensitive * Will start Cipro 400mg Q12H * Urology consult placed- Dr. Carlos Iqbal- f/u recs * Plan for cystoscopy tomorrow * Ryan placed in ED with >1.5L output 3) History of HTN * Continue home meds: Norvasc 5mg PO daily * Lisinopril 20mg PO daily (hold for hyponatremia), * HCTZ 25mg PO daily (hold for hyponatremia) * Currently normatensive, will continue to monitor 4) Hx of colon CA s/p resection * Resection done [place] [address] Dave 5) Electrolyte Abnormalities * Potassium 3.7 * Continue to monitor Prophylaxis Protonix 40mg PO daily Lovenox 40U SC daily Case discussed with Dr. Ambrose
[2017-12-07] MEDS: Ciprofloxacin 400mg/200ml D5W 400 MG/200 ML BAG IVPB SCH (17:26)
[2017-12-08] MEDS: Ciprofloxacin 400mg/200ml D5W 400 MG/200 ML BAG IVPB SCH ×2 (04:27→17:48)
[2017-12-08 06:18] LABS: BASO # 0.1 K/uL (0.0-0.2); BASO % 0.9 % (0.0-2.0); EOS # 0.2 K/uL (0.0-0.7); EOS % 3.6 % (0.0-4.0); HEMOGLOBIN 12.4 g/dL (12.0-18.0); LYMPH # 2.1 K/uL (1.0-4.3); LYMPH % 31.7 % (20.0-40.0); MEAN CELL VOLUME 91.6 fL (80.0-94.0); MEAN CORPUSCULAR HEMOGLOBIN 31.7 pg (27.0-31.0); MEAN CORPUSCULAR HGB CONC 34.6 g/dL (33.0-37.0); MEAN PLATELET VOLUME 8.5 fL (7.2-11.7); MONO # 0.6 K/uL (0.0-0.8); MONO % 9.1 % (0.0-10.0); NEUT # 3.5 K/uL (1.8-7.0); NEUT % 54.7 % (50.0-75.0); NRBC % 0.1 % (0.0-2.0); RBC 3.91 Mil/uL (4.40-5.90); RED CELL DISTRIBUTION WIDTH 13.1 % (11.5-14.5); WHITE BLOOD COUNT 6.5 K/uL (4.8-10.8)
[2017-12-08 06:38] LABS: INR 1.1; PROTHROMBIN TIME 11.8 SECONDS (9.7-12.2)
[2017-12-08 06:39] LABS: ALBUMIN 3.3 g/dL (3.5-5.0); ALT/SGPT 29 U/L (21-72); AST/SGOT 24 U/L (17-59); BLOOD UREA NITROGEN 11 mg/dL (9-20); GFR AFRICAN-AMERICAN > 60; GFR NON-AFRICAN AMERICAN > 60
[2017-12-08 06:44] LABS: ALB/GLOB RATIO 1.1 (1.0-2.1)
[2017-12-08] MEDS ORDERED: Iohexol 240 (50 ml) ONE (07:20)
[2017-12-08] MEDS ORDERED: Lactated Ringer's 1,000 ML IV ONE (09:10)
[2017-12-08] MEDS ORDERED: Propofol 10 mg/ml Inj (20 ML) ONE (09:20)
[2017-12-08] MEDS ORDERED: Midazolam 2 MG/2 ML VIAL ONE (09:20)
[2017-12-08] MEDS ORDERED: Iohexol 240 200 ML ONE (09:22)
[2017-12-08] MEDS: Enoxaparin 40 mg Syringe SC SCH (09:30)
[2017-12-08] MEDS ORDERED: HYDROmorphone 0.5 mg/0.5 ml ISec IVP PRN (10:10)
--- NOTE | 2017-12-08 10:12 | PCM.SURG1 ---
Surgeon's Initial Post Op Note - Surgeon's Notes Surgeon: Heather Iqbal Administrative Specialist: none Type of Anesthesia: IV Sedation Pre-Operative Diagnosis: Urinary retention Operative Findings: same, cystitis, bph Post-Operative Diagnosis: same Operation Performed: cystogram, cystoscopy, bilat rtg pyelogram Specimen/Specimens Removed: none Estimated Blood Loss: EBL {In ML}: 0 Blood Products Given: N/A Post-Op Condition: Good Date of Surgery/Procedure: 12/08/17 Time of Surgery/Procedure: 10:00
[2017-12-08] MEDS ORDERED: Lactated Ringer's 1,000 ML IV SCH (10:15)
[2017-12-08 11:30] VITALS: O2SAT 98
[2017-12-08] MEDS: Pantoprazole 40 mg EC Tab PO SCH (11:56)
--- NOTE | 2017-12-08 12:52 | CP.PCM.DIS ---
Provider - Provider Date of Admission: 12/04/17 14:04 Attending physician: Jose Miguel Ambrose Jr, MD Time Spent in preparation of Discharge (in minutes): 31 Hospital Course - Lab Results Lab Results: Micro Results 12/04/17 11:57 Urine Urine Culture - Final Klebsiella Ozaenae 12/05/17 10:53 Nose MRSA Culture (Admit) - Final MRSA NOT DETECTED Most Recent Lab Values WBC 6.5 K/uL (4.8-10.8) 12/08/17 06:11 RBC 3.91 Mil/uL (4.40-5.90) L 12/08/17 06:11 Hgb 12.4 g/dL (12.0-18.0) 12/08/17 06:11 Hct 35.8 % (35.0-51.0) 12/08/17 06:11 MCV 91.6 fL (80.0-94.0) 12/08/17 06:11 MCH 31.7 pg (27.0-31.0) H 12/08/17 06:11 MCHC 34.6 g/dL (33.0-37.0) 12/08/17 06:11 RDW 13.1 % (11.5-14.5) 12/08/17 06:11 Plt Count 233 K/uL (130-400) 12/08/17 06:11 MPV 8.5 fL (7.2-11.7) 12/08/17 06:11 Neut % (Auto) 54.7 % (50.0-75.0) 12/08/17 06:11 Lymph % (Auto) 31.7 % (20.0-40.0) 12/08/17 06:11 [place] % (Auto) 9.1 % (0.0-10.0) 12/08/17 06:11 Eos % (Auto) 3.6 % (0.0-4.0) 12/08/17 06:11 Baso % (Auto) 0.9 % (0.0-2.0) 12/08/17 06:11 Neut # 3.5 K/uL (1.8-7.0) 12/08/17 06:11 Lymph # 2.1 K/uL (1.0-4.3) 12/08/17 06:11 [place] # 0.6 K/uL (0.0-0.8) 12/08/17 06:11 Eos # 0.2 K/uL (0.0-0.7) 12/08/17 06:11 Baso # 0.1 K/uL (0.0-0.2) 12/08/17 06:11 PT 11.8 SECONDS (9.7-12.2) 12/08/17 06:11 INR 1.1 12/08/17 06:11 APTT 26 SECONDS (21-34) 12/08/17 06:11 Sodium 135 mmol/L (132-148) 12/08/17 06:11 Potassium 3.8 mmol/L (3.6-5.2) 12/08/17 06:11 Chloride 103 mmol/L (98-107) 12/08/17 06:11 Carbon Dioxide 25 mmol/L (22-30) 12/08/17 06:11 Anion Gap 11 (10-20) 12/08/17 06:11 BUN 11 mg/dL (9-20) 12/08/17 06:11 Creatinine 0.8 mg/dL (0.8-1.5) 12/08/17 06:11 Est GFR ( Amer) > 60 12/08/17 06:11 Est GFR (Non-Af Amer) > 60 12/08/17 06:11 Random Glucose 92 mg/dL (75-110) 12/08/17 06:11 Serum Osmolality 267 mosm/kg (272-300) L 12/04/17 14:14 Calcium 8.0 mg/dl (8.6-10.4) L 12/08/17 06:11 Phosphorus 3.9 mg/dL (2.5-4.5) 12/05/17 04:32 Magnesium 2.1 mg/dL (1.6-2.3) 12/05/17 04:32 Total Bilirubin 0.3 mg/dL (0.2-1.3) 12/08/17 06:11 AST 24 U/L (17-59) 12/08/17 06:11 ALT 29 U/L (21-72) 12/08/17 06:11 Alkaline Phosphatase 52 U/L (38-126) 12/08/17 06:11 Total Protein 6.2 g/dL (6.3-8.3) L 12/08/17 06:11 Albumin 3.3 g/dL (3.5-5.0) L 12/08/17 06:11 Globulin 2.9 gm/dL (2.2-3.9) 12/08/17 06:11 Albumin/Globulin Ratio 1.1 (1.0-2.1) 12/08/17 06:11 Free PSA 1.4 ng/mL 12/04/17 17:59 % Free PSA Not calculated % (calc) (>25) 12/04/17 17:59 Total PSA 14.5 ng/mL (< or = 4.0) H 12/04/17 17:59 Urine Color Yellow (YELLOW) 12/05/17 11:56 Urine Clarity Clear (Clear) 12/05/17 11:56 Urine pH 6.0 (5.0-8.0) 12/05/17 11:56 Ur Specific [place] 1.019 (1.003-1.030) 12/05/17 11:56 Urine Protein 2+ mg/dL (NEGATIVE) H 12/05/17 11:56 Urine Glucose (UA) Normal mg/dL (Normal) 12/05/17 11:56 Urine Ketones 1+ mg/dL (NEGATIVE) H 12/05/17 11:56 Urine Blood 1+ (NEGATIVE) H 12/05/17 11:56 Urine Nitrate Negative (NEGATIVE) 12/05/17 11:56 Urine Bilirubin Negative (NEGATIVE) 12/05/17 11:56 Urine Urobilinogen 2.0 mg/dL (0.2-1.0) 12/05/17 11:56 Ur Leukocyte Esterase 3+ [place]/uL (Negative) H 12/05/17 11:56 Urine WBC (Auto) 107 /hpf (0-5) H 12/05/17 11:56 Urine RBC (Auto) 27 /hpf (0-3) H 12/05/17 11:56 Urine Bacteria Rare (<OCC) 12/05/17 11:56 Urine Osmolality 210 mosm/kg (300-1000) L 12/04/17 14:14 Ur Random Sodium 18 mmol/L 12/04/17 16:02 Urine Chloride 29 mmol/L (32-290) L 12/04/17 16:02 - Hospital Course Hospital Course: This is a 67 y/o male with a hx of colon CA s/p resection w/ Dr. Dave in July 2017 coming in with urinary retention and found to be hyponatremic 119 in the ED. Jamshid states that for the last 3 days he has had trouble urinating in the following way- the urine does not expel easily and he must strain to get the urine out. He notes a weak stream despite straining. He states that he feels like he needs to urinate constantly. He also notes that he has been drinking more beer than usual. He states that he drinks 3-6 beers twice a weekly. Jamshid does have a questionable history of BPH. Although he has never seen a urologist or taken any medications for this, he does remember his doctor telling him he had an enlarged prostate. Patient was admitted to med/surg with telemetry. Ryan was placed for urinary retention. CT abd/pelvis showed numerous bilateral renal hypodensities, likely cysts. Bowel loop adjacent to the urinary bladder appears thick wallked (see full report). Bladder ultrasound was performed and showed bilateral simple renal cyst, bilateral extrarenal pelvis (see full report). Dr Iqbal was consulted. Of note, Total PSA 14.5, Free PSA 1.4. Urine cx grew Klebsiella, patient was started on IV antibiotics. Patient went for cystoscopy which showed BPH, cystitis and urinary retention. Found to have a sodium of 119 on admission. Hyonatremia was likely secondary to beer protomania. Patient was placed on fluid restriction. Sodium levels normalized. Patient was monitored closely for withdrawal symptoms however did not require Librium taper. On day of discharge, patient was medically stable. Denies headaches, dizziness, cp, palpitations, sob, abdominal pain, urinary symptoms. Patient instructed that he will be discharged with ryan catheter in place and he will need to followup with Dr Iqbal outpatient. Patient discharged with prescription for Ciprofloxacin 500mg BID x 5 days, Avodart and Flomax. All questions and concerns addressed. Discharge Exam - Additional Findings Additional findings: - Constitutional Appears: Non-toxic, No Acute Distress - Head Exam Head Exam: ATRAUMATIC, NORMAL INSPECTION - Eye Exam Eye Exam: EOMI, Normal appearance - ENT Exam ENT Exam: Mucous Membranes Moist - Neck Exam Neck Exam: Full ROM - Respiratory Exam Respiratory Exam: Clear to Ausculation Bilateral, NORMAL BREATHING PATTERN. absent: Rales, Rhonchi, Wheezes - Cardiovascular Exam Cardiovascular Exam: REGULAR RHYTHM, +S1, +S2 - GI/Abdominal Exam GI & Abdominal Exam: Soft, Normal Bowel Sounds. absent: Guarding, Rigid, Tenderness - Exam Additional comments: Ryan in draining yellow urine - Extremities Exam Extremities Exam: Full ROM - Back Exam Back Exam: NORMAL INSPECTION - Neurological Exam Neurological Exam: Alert, Awake, Oriented x3 - Psychiatric Exam Psychiatric exam: Normal Affect, Normal Mood - Skin Skin Exam: Dry, Normal Color, Warm Discharge Plan - Discharge Medications Prescriptions: Ciprofloxacin [Cipro] 500 mg PO BID 5 Days #10 tab Dutasteride [Avodart] 0.5 mg PO DAILY #30 capsule Tamsulosin [Flomax] 0.4 mg PO DAILY #30 cap - Follow Up Plan Condition: STABLE Disposition: HOME/ ROUTINE Instructions: Benign Prostatic Hypertrophy (DC), Urinary Tract Infection in Men (GEN), Ryan Catheter Placement and Care (DC), Urinary Leg Bag (GEN) Additional Instructions: 1. Patient to be discharged home with ryan 2. Continue medications as prescribed 3. Please make an appointment to follow up with Dr Iqbal upon discharge
[2017-12-08 16:06] VITALS: BP 146/80; PULSE 76; RESP 20; TEMP 98.3
--- NOTE | 2017-12-08 18:33 | RAD ---
PROCEDURE: Cystogram HISTORY: URINARY RETENTION COMPARISON: None TECHNIQUE: Standard protocol for this study/examination. FINDINGS: Multiple small bladder diverticulum. Thicken urinary bladder wall. Unremarkable collecting system and ureter. IMPRESSION: No focal abnormalities. Findings discussed in greater detail above.
[2017-12-08 21:47] LABS: TOTAL PSA 9.5 ng/mL (< or = 4.0)
== END 2017-12-08 20:50 | disposition home or self-care (01) | DRG 348 ==
LOC: C.ER 11:00 → C.9E 14:04 → C.9I 12-05 09:11 → C.3T 12-07 21:08
PROVIDERS: ADMIT Internal Medicine; ATTEND Internal Medicine
PROC: 0T7D8DZ Dilation of Urethra with Intraluminal Device, Via Natural or Artificial Opening Endoscopic (ICD-10-PCS; principal; 2017-12-04)
PROC: BT141ZZ Fluoroscopy of Kidneys, Ureters and Bladder using Low Osmolar Contrast (ICD-10-PCS; 2017-12-04)
DX: N40.1 Benign prostatic hyperplasia with lower urinary tract symptoms (principal); E87.1 Hypo-osmolality and hyponatremia; B96.1 Klebsiella pneumoniae [K. pneumoniae] as the cause of diseases classified elsewhere; N28.1 Cyst of kidney, acquired; N30.90 Cystitis, unspecified without hematuria; F17.200 Nicotine dependence, unspecified, uncomplicated; I10 Essential (primary) hypertension; R33.8 Other retention of urine; Z85.038 Personal history of other malignant neoplasm of large intestine

== ENCOUNTER 2017-12-14 20:51 | Inpatient (IN) | payer MEDICAID, MEDICARE ==
[2017-12-14 20:51] VITALS: BMI 26.9
--- NOTE | 2017-12-14 21:31 | C.PDOC ---
History Of Present Illness 67 year old male presents to the ED c/o urinary retention. Patient reports he went to see his PMD today who removed a ryan he had in place and was not able to urinate after. In the ED ryan was placed with 1200 cc output. Patient denies other pain or physical complaints. Time Seen by Provider: 12/14/17 21:24 Chief Complaint (Nursing): Male Genitourinary History Per: Patient History/Exam Limitations: no limitations Onset/Duration Of Symptoms: Hrs Current Symptoms Are (Timing): Still Present Quality Of Discomfort: "Pain" Associated Symptoms: Urinary Symptoms Recent travel outside of the [place]: No Additional History Per: Patient Past Medical History Reviewed: Historical Data, Nursing Documentation, Vital Signs Vital Signs: Last Vital Signs Temp 97.9 F 12/14/17 21:16 Pulse 95 H 12/14/17 21:16 Resp 20 12/14/17 21:16 BP 116/65 12/14/17 21:16 Pulse Ox 100 12/14/17 21:36 - Medical History PMH: HTN Denies: Chronic Kidney Disease Surgical History: No Surg Hx - [facility] Procedures DILATION OF URETHRA WITH INTRALUMINAL DEVICE, ENDO (12/04/17) FLUOROSCOPY OF KIDNEY, URETER & BLADDER USING L OSM CONTRAST (12/04/17) INSERTION OF INFUSION DEVICE INTO ABD WALL, PERC APPROACH (08/04/17) RELEASE PERITONEUM, PERCUTANEOUS ENDOSCOPIC APPROACH (08/04/17) RESECTION OF SIGMOID COLON, OPEN APPROACH (08/04/17) ROBOTIC ASSISTED PROCEDURE OF TRUNK REGION, ENDO (08/04/17) Family History: States: Unknown Family Hx - Social History Hx Alcohol Use: Yes (occasional beers) Hx Substance Use: Yes (smoked pot when at 20 years old) - Immunization History Hx Tetanus Toxoid Vaccination: No Hx Influenza Vaccination: Yes Hx Pneumococcal Vaccination: No Review Of Systems Except As Marked, All Systems Reviewed And Found Negative. Genitourinary: Positive for: Other (urinary retention) Musculoskeletal: Positive for: Back Pain Physical Exam - Physical Exam Appears: Non-toxic, No Acute Distress Skin: Normal Color, Warm, Dry Head: Atraumatic, Normacephalic Eye(s): bilateral: Normal Inspection Nose: No Discharge, No Deformity Oral Mucosa: Moist Neck: Normal ROM, Supple Chest: Symmetrical Cardiovascular: Rhythm Regular, No Murmur Respiratory: Normal Breath Sounds, No Rales, No Rhonchi, No Wheezing Gastrointestinal/Abdominal: Soft, No Tenderness, No Guarding, No Rebound Extremity: Normal ROM, No Pedal Edema, No Calf Tenderness, No Deformity, No Swelling Neurological/Psych: Oriented x3, Normal Speech, Normal Cognition Gait: Steady ED Course And Treatment - Laboratory Results Result Diagrams: 12/14/17 21:41 12/14/17 21:41 O2 Sat by Pulse Oximetry: 100 (On RA) Pulse Ox Interpretation: Normal Medical Decision Making Medical Decision Making: Impression : urinary retention Plan: * Labs * UA On the ED a ryan cath was placed with 1200 cc output. Disposition - Disposition Disposition: HOSPITALIZED Disposition Time: 23:23 Condition: FAIR - Clinical Impression Clinical Impression: Hyponatremia, Urinary retention - Scribe Statement The provider has reviewed the documentation as recorded by the Scribe Oli Seo All medical record entries made by the Scribe were at my direction and personally dictated by me. I have reviewed the chart and agree that the record accurately reflects my personal performance of the history, physical exam, medical decision making, and the department course for this patient. I have also personally directed, reviewed, and agree with the discharge instructions and disposition. Decision To Admit - Pt Status Changed To: Hospital Disposition Of: Inpatient - Admit Certification Admit to Inpatient:: After my assessment, the patient will require hospitalization for at least two midnights. This is because of the severity of symptoms shown, intensity of services needed, and/or the medical risk in this patient being treated as an outpatient. - InPatient: Physician Admission Certification: I certify that this patient requires 2 or more midnights of care for the following reason:: hypo natremia needs ivf - . Bed Request Type: Regular Admitting Physician: Jose Miguel Ambrose Jr. Patient Diagnosis: Hyponatremia, Urinary retention
[2017-12-14 21:46] LABS: BASO # 0.1 K/uL (0.0-0.2); EOS % 0.6 % (0.0-4.0); HEMOGLOBIN 12.6 g/dL (12.0-18.0); LYMPH # 2.9 K/uL (1.0-4.3); LYMPH % 35.5 % (20.0-40.0); MEAN CELL VOLUME 91.4 fL (80.0-94.0); MEAN CORPUSCULAR HEMOGLOBIN 31.3 pg (27.0-31.0); MEAN CORPUSCULAR HGB CONC 34.3 g/dL (33.0-37.0); MONO # 0.8 K/uL (0.0-0.8); MONO % 9.6 % (0.0-10.0); NEUT # 4.4 K/uL (1.8-7.0); NEUT % 53.3 % (50.0-75.0); RBC 4.01 Mil/uL (4.40-5.90); RED CELL DISTRIBUTION WIDTH 13.1 % (11.5-14.5); WHITE BLOOD COUNT 8.2 K/uL (4.8-10.8)
[2017-12-14 21:48] LABS: URINE BILIRUBIN NEGATIVE (NEGATIVE); URINE BLOOD 2+ (NEGATIVE); URINE CLARITY Clear (Clear); URINE COLOR Straw (YELLOW); URINE GLUCOSE (UA) NORMAL (Normal); URINE HYALINE CAST 0-2 /lpf (0-2); URINE LEUKOCYTE ESTERASE NEG Leu/uL (Negative); URINE NITRATE NEGATIVE (NEGATIVE); URINE PROTEIN NEGATIVE (NEGATIVE); URINE UROBILINOGEN NORMAL mg/dL (0.2-1.0)
[2017-12-14 21:54] LABS: PROTHROMBIN TIME 11.3 SECONDS (9.7-12.2)
[2017-12-14 21:57] LABS: BLOOD UREA NITROGEN 17 mg/dL (9-20); GFR AFRICAN-AMERICAN > 60; GFR NON-AFRICAN AMERICAN > 60
[2017-12-14 21:58] LABS: ALB/GLOB RATIO 1.3 (1.0-2.1); ALBUMIN 3.9 g/dL (3.5-5.0); ALT/SGPT 39 U/L (21-72); AST/SGOT 26 U/L (17-59); CALCIUM 8.4 mg/dl (8.6-10.4)
[2017-12-14] MEDS: Sodium Chloride 0.9% 1,000 ML IV SCH (22:18)
[2017-12-14 22:29] LABS: OSMOLALITY,URINE 160 mosm/kg (300-1000)
--- NOTE | 2017-12-14 22:55 | CP.PCM.HP ---
History of Present Illness - History of Present Illness History of Present Illness: Medicine Note for Dr. Ambrose's Service CC: Urinary Retention HPI: 67 yo male with a PMHx of colon CA s/p resection w/ Dr. Dave in July 2017 coming in with urinary retention and found to be hyponatremic 124 in the ED. Patient was recently discharged from [facility] on with ryan in place and was instructed to follow up with Dr. Carlos Iqbal in his office. He saw him morning where the ryan was removed. He was instructed if he could not urinate by 7pm to come to the ED. No other complaints at this time. Denied fever, chills, headache, chest pain, SOB, abdominal pain, n/v/d/c, or urinary symptoms. 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 Finney Oncologist: Dr. Reese Present on Admission - Present on Admission Any Indicators Present on Admission: No Past Patient History - Infectious Disease Hx of Infectious Diseases: None - Past Medical History & Family History Past Medical History?: Yes - Past Social History Smoking Status: Former Smoker - CARDIAC Hx Hypertension: Yes - PULMONARY Hx Respiratory Disorders: No - NEUROLOGICAL Hx Neurological Disorder: No - HEENT Hx HEENT Problems: Yes Hx Cataracts: Yes (TWILA. REMOVED) - RENAL Hx Chronic Kidney Disease: No - ENDOCRINE/METABOLIC Hx Endocrine Disorders: No - HEMATOLOGICAL/ONCOLOGICAL Hx Blood Disorders: Yes Hx Cancer: Yes (COLON) - INTEGUMENTARY Hx Dermatological Problems: No - GASTROINTESTINAL Hx Gastrointestinal Disorders: Yes Other/Comment: COLON CANCER - GENITOURINARY/GYNECOLOGICAL Hx Genitourinary Disorders: No - PSYCHIATRIC Hx Substance Use: Yes (smoked pot when at 20 years old) - SURGICAL HISTORY Other/Comment: colon ca removal - ANESTHESIA Hx Anesthesia: Yes Hx Anesthesia Reactions: No Hx Malignant Hyperthermia: No Meds Allergies/Adverse Reactions: Allergies Allergy/AdvReac Type Severity Reaction Status Date / Time No Known Allergies Allergy Verified 12/14/17 21:20 Physical Exam - Constitutional Appears: No Acute Distress - Head Exam Head Exam: NORMAL INSPECTION, NORMOCEPHALIC - Eye Exam Eye Exam: EOMI, Normal appearance, PERRL - ENT Exam ENT Exam: Mucous Membranes Moist, Normal Exam - Respiratory Exam Respiratory Exam: Clear to Auscultation Bilateral, NORMAL BREATHING PATTERN. absent: Decreased Breath Sounds, Wheezes - Cardiovascular Exam Cardiovascular Exam: REGULAR RHYTHM - GI/Abdominal Exam GI & Abdominal Exam: Normal Bowel Sounds, Soft. absent: Distended, Tenderness - Exam Additional comments: Ryan in place - Extremities Exam Extremities exam: Positive for: normal inspection, pedal pulses present. Negative for: pedal edema, tenderness - Neurological Exam Neurological exam: Alert, CN II-XII Intact, Oriented x3 - Psychiatric Exam Psychiatric exam: Normal Affect, Normal Mood - Skin Skin Exam: Dry, Intact, Normal Color, Warm Results - Vital Signs Recent Vital Signs: Last Vital Signs Temp 97.9 F 12/14/17 21:16 Pulse 95 H 12/14/17 21:16 Resp 20 12/14/17 21:16 BP 116/65 12/14/17 21:16 Pulse Ox 100 12/14/17 21:36 - Labs Result Diagrams: 12/14/17 21:41 12/14/17 21:41 Labs: Laboratory Results - last 24 hr 12/14/17 12/14/17 12/14/17 21:41 21:41 21:41 WBC 8.2 RBC 4.01 L Hgb 12.6 Hct 36.7 MCV 91.4 MCH 31.3 H MCHC 34.3 RDW 13.1 Plt Count 272 MPV 8.0 Neut % (Auto) 53.3 Lymph % (Auto) 35.5 [place] % (Auto) 9.6 Eos % (Auto) 0.6 Baso % (Auto) 1.0 Neut # 4.4 Lymph # 2.9 [place] # 0.8 Eos # 0.0 Baso # 0.1 PT 11.3 INR 1.0 APTT 26 Sodium Potassium Chloride Carbon Dioxide Anion Gap BUN Creatinine Est GFR ( Amer) Est GFR (Non-Af Amer) Random Glucose Serum Osmolality Calcium Total Bilirubin AST ALT Alkaline Phosphatase Total Protein Albumin Globulin Albumin/Globulin Ratio Urine Color Straw Urine Clarity Clear Urine pH 6.0 Ur Specific [place] 1.005 Urine Protein Negative Urine Glucose (UA) Normal Urine Ketones Negative Urine Blood 2+ H Urine Nitrate Negative Urine Bilirubin Negative Urine Urobilinogen Normal Ur Leukocyte Esterase Neg Urine WBC (Auto) < 1 Urine RBC (Auto) 20 H Hyaline Casts 0-2 Urine Osmolality Ur Random Sodium 12/14/17 12/14/17 12/14/17 21:41 22:24 22:24 WBC RBC Hgb Hct MCV MCH MCHC RDW Plt Count MPV Neut % (Auto) Lymph % (Auto) [place] % (Auto) Eos % (Auto) Baso % (Auto) Neut # Lymph # [place] # Eos # Baso # PT INR APTT Sodium 124 L Potassium 3.7 Chloride 94 L Carbon Dioxide 19 L Anion Gap 16 BUN 17 Creatinine 0.9 Est GFR ( Amer) > 60 Est GFR (Non-Af Amer) > 60 Random Glucose 83 Serum Osmolality 298 Calcium 8.4 L Total Bilirubin 0.8 AST 26 ALT 39 Alkaline Phosphatase 57 Total Protein 6.8 Albumin 3.9 Globulin 2.9 Albumin/Globulin Ratio 1.3 Urine Color Urine Clarity Urine pH Ur Specific [place] Urine Protein Urine Glucose (UA) Urine Ketones Urine Blood Urine Nitrate Urine Bilirubin Urine Urobilinogen Ur Leukocyte Esterase Urine WBC (Auto) Urine RBC (Auto) Hyaline Casts Urine Osmolality 160 L Ur Random Sodium 28 Assessment & Plan - Assessment and Plan (Free Text) Assessment: 67 yo male with a PMHx of colon CA s/p resection w/ Dr. Dave in July 2017 coming in with urinary retention and found to be hyponatremic 124 in the ED. Plan: Urinary Retention Urology consulted- Dr. Carlos Iqbal - help appreciated Total PSA 14.5, Free PSA 1.4 (12/07/17) Ryan in place Beer Potomania Hx Alcohol Abuse Hyponatremia Na 124 Serum 298, urine osm 160, urine random Na 28 Fluid Restriction, continue to monitor Ativan 1mg IVP Q6H Symptoms of Alcohol Withdrawal History of HTN Continue home meds: Norvasc 5mg PO daily Lisinopril 20mg PO daily (hold for hyponatremia), HCTZ 25mg PO daily (hold for hyponatremia) Currently normatensive, will continue to monitor Hx of colon CA s/p resection Resection done in July [address] Dave Prophylactic Measures GI PPX: Protonix 40mg PO daily DVT PPX: SCDs, Heparin Q12 Will Discuss with Dr. Ambrose, Kira You DO, PGY-1
[2017-12-14] MEDS ORDERED: Sodium Chloride 0.9% 1,000 ML IV SCH (23:45)
[2017-12-15 04:12] LABS: BASO % 0.7 % (0.0-2.0); EOS # 0.1 K/uL (0.0-0.7); EOS % 0.7 % (0.0-4.0); HEMOGLOBIN 12.7 g/dL (12.0-18.0); LYMPH # 1.6 K/uL (1.0-4.3); LYMPH % 22.2 % (20.0-40.0); MEAN CELL VOLUME 90.7 fL (80.0-94.0); MEAN CORPUSCULAR HEMOGLOBIN 31.8 pg (27.0-31.0); MEAN CORPUSCULAR HGB CONC 35.1 g/dL (33.0-37.0); MEAN PLATELET VOLUME 8.3 fL (7.2-11.7); MONO # 0.7 K/uL (0.0-0.8); MONO % 9.2 % (0.0-10.0); NEUT # 4.9 K/uL (1.8-7.0); NEUT % 67.2 % (50.0-75.0); NRBC % 0.1 % (0.0-2.0); RBC 3.98 Mil/uL (4.40-5.90); RED CELL DISTRIBUTION WIDTH 13.2 % (11.5-14.5); WHITE BLOOD COUNT 7.3 K/uL (4.8-10.8)
[2017-12-15 05:13] LABS: ALBUMIN 3.7 g/dL (3.5-5.0)
[2017-12-15 07:47] LABS: ALB/GLOB RATIO 1.2 (1.0-2.1); ALT/SGPT 36 U/L (21-72); AST/SGOT 35 U/L (17-59); BLOOD UREA NITROGEN 14 mg/dL (9-20); CALCIUM 8.3 mg/dl (8.6-10.4); GFR AFRICAN-AMERICAN > 60; GFR NON-AFRICAN AMERICAN > 60; MAGNESIUM 1.7 mg/dL (1.6-2.3)
[2017-12-15] MEDS: Sodium Chloride 0.9% 1,000 ML IV SCH ×2 (09:00→22:26)
[2017-12-15] MEDS: Pantoprazole 40 mg EC Tab PO SCH (10:51)
[2017-12-15] MEDS ORDERED: Influenza Vaccine 60 mcg/0.5 mL SYR (4YR UP) IM ONE (16:44)
[2017-12-15] MEDS ORDERED: Pneumococcal 23-Valent Vaccine IM ONE (16:44)
--- NOTE | 2017-12-15 17:11 | CP.PCM.CON ---
Past Patient History - Infectious Disease Hx of Infectious Diseases: None - Past Medical History & Family History Past Medical History?: Yes - Past Social History Smoking Status: Former Smoker - CARDIAC Hx Hypertension: Yes - PULMONARY Hx Respiratory Disorders: No - NEUROLOGICAL Hx Neurological Disorder: No - HEENT Hx HEENT Problems: Yes Hx Cataracts: Yes (TWILA. REMOVED) - RENAL Hx Chronic Kidney Disease: No - ENDOCRINE/METABOLIC Hx Endocrine Disorders: No - HEMATOLOGICAL/ONCOLOGICAL Hx Blood Disorders: Yes Hx Cancer: Yes (COLON) - INTEGUMENTARY Hx Dermatological Problems: No - MUSCULOSKELETAL/RHEUMATOLOGICAL Hx Falls: No - GASTROINTESTINAL Hx Gastrointestinal Disorders: Yes Other/Comment: COLON CANCER - GENITOURINARY/GYNECOLOGICAL Hx Genitourinary Disorders: No - PSYCHIATRIC Hx Substance Use: Yes (smoked pot when at 20 years old) - SURGICAL HISTORY Other/Comment: colon ca removal - ANESTHESIA Hx Anesthesia: Yes Hx Anesthesia Reactions: No Hx Malignant Hyperthermia: No Meds Allergies/Adverse Reactions: Allergies Allergy/AdvReac Type Severity Reaction Status Date / Time No Known Allergies Allergy Verified 12/14/17 21:20 - Medications Medications: Current Medications Amlodipine Besylate (Norvasc) 5 mg PO DAILY [facility] Last Admin: 12/15/17 10:51 Dose: 5 mg Heparin Sodium (Porcine) (Heparin) 5,000 units SC Q12 [facility] Last Admin: 12/15/17 10:51 Dose: 5,000 units Sodium Chloride (Sodium Chloride 0.9%) 1,000 mls @ 100 mls/hr IV .Q10H [facility] Last Admin: 12/15/17 09:00 Dose: 100 mls/hr Lorazepam (Ativan) 1 mg IVP Q6H PRN PRN Reason: Symptoms of alcohol withdrawl Pantoprazole Sodium (Protonix Ec Tab) 40 mg PO DAILY [facility] Last Admin: 12/15/17 10:51 Dose: 40 mg Tamsulosin HCl (Flomax) 0.4 mg PO DAILY [facility] Last Admin: 12/15/17 10:51 Dose: 0.4 mg Results - Vital Signs Recent Vital Signs: Last Vital Signs Temp 98.0 F 12/15/17 16:25 Pulse 78 12/15/17 16:25 Resp 20 12/15/17 16:25 BP 151/67 H 12/15/17 16:25 Pulse Ox 97 12/15/17 16:25 - Labs Result Diagrams: 12/15/17 04:10 12/15/17 04:10 Labs: Laboratory Results - last 24 hr 12/14/17 12/14/17 12/14/17 21:41 21:41 21:41 WBC 8.2 RBC 4.01 L Hgb 12.6 Hct 36.7 MCV 91.4 MCH 31.3 H MCHC 34.3 RDW 13.1 Plt Count 272 MPV 8.0 Neut % (Auto) 53.3 Lymph % (Auto) 35.5 [place] % (Auto) 9.6 Eos % (Auto) 0.6 Baso % (Auto) 1.0 Neut # 4.4 Lymph # 2.9 [place] # 0.8 Eos # 0.0 Baso # 0.1 PT 11.3 INR 1.0 APTT 26 Sodium Potassium Chloride Carbon Dioxide Anion Gap BUN Creatinine Est GFR ( Amer) Est GFR (Non-Af Amer) Random Glucose Serum Osmolality Calcium Phosphorus Magnesium Total Bilirubin AST ALT Alkaline Phosphatase Total Protein Albumin Globulin Albumin/Globulin Ratio Urine Color Straw Urine Clarity Clear Urine pH 6.0 Ur Specific [place] 1.005 Urine Protein Negative Urine Glucose (UA) Normal Urine Ketones Negative Urine Blood 2+ H Urine Nitrate Negative Urine Bilirubin Negative Urine Urobilinogen Normal Ur Leukocyte Esterase Neg Urine WBC (Auto) < 1 Urine RBC (Auto) 20 H Hyaline Casts 0-2 Urine Osmolality Ur Random Sodium 12/14/17 12/14/17 12/14/17 21:41 22:24 22:24 WBC RBC Hgb Hct MCV MCH MCHC RDW Plt Count MPV Neut % (Auto) Lymph % (Auto) [place] % (Auto) Eos % (Auto) Baso % (Auto) Neut # Lymph # [place] # Eos # Baso # PT INR APTT Sodium 124 L Potassium 3.7 Chloride 94 L Carbon Dioxide 19 L Anion Gap 16 BUN 17 Creatinine 0.9 Est GFR ( Amer) > 60 Est GFR (Non-Af Amer) > 60 Random Glucose 83 Serum Osmolality 298 Calcium 8.4 L Phosphorus Magnesium Total Bilirubin 0.8 AST 26 ALT 39 Alkaline Phosphatase 57 Total Protein 6.8 Albumin 3.9 Globulin 2.9 Albumin/Globulin Ratio 1.3 Urine Color Urine Clarity Urine pH Ur Specific [place] Urine Protein Urine Glucose (UA) Urine Ketones Urine Blood Urine Nitrate Urine Bilirubin Urine Urobilinogen Ur Leukocyte Esterase Urine WBC (Auto) Urine RBC (Auto) Hyaline Casts Urine Osmolality 160 L Ur Random Sodium 28 12/15/17 12/15/17 04:10 04:10 WBC 7.3 RBC 3.98 L Hgb 12.7 Hct 36.1 MCV 90.7 MCH 31.8 H MCHC 35.1 RDW 13.2 Plt Count 268 MPV 8.3 Neut % (Auto) 67.2 Lymph % (Auto) 22.2 [place] % (Auto) 9.2 Eos % (Auto) 0.7 Baso % (Auto) 0.7 Neut # 4.9 Lymph # 1.6 [place] # 0.7 Eos # 0.1 Baso # 0.0 PT INR APTT Sodium 130 L Potassium 4.5 Chloride 101 Carbon Dioxide 21 L Anion Gap 13 BUN 14 Creatinine 0.8 Est GFR ( Amer) > 60 Est GFR (Non-Af Amer) > 60 Random Glucose 88 Serum Osmolality Calcium 8.3 L Phosphorus 3.3 Magnesium 1.7 Total Bilirubin 0.9 AST 35 ALT 36 Alkaline Phosphatase 64 Total Protein 6.7 Albumin 3.7 Globulin 3.0 Albumin/Globulin Ratio 1.2 Urine Color Urine Clarity Urine pH Ur Specific [place] Urine Protein Urine Glucose (UA) Urine Ketones Urine Blood Urine Nitrate Urine Bilirubin Urine Urobilinogen Ur Leukocyte Esterase Urine WBC (Auto) Urine RBC (Auto) Hyaline Casts Urine Osmolality Ur Random Sodium Assessment & Plan - Assessment and Plan (Free Text) Assessment: Imp: Urinary retention Enlarged prostate Hyponatremia Full note t/f Thank you YS - Date & Time Date: 12/15/17 Time: 12:25
--- NOTE | 2017-12-15 19:42 | CP.PCM.PN ---
<Anand Oconnell - Last Filed: 12/15/17 19:47> Subjective - Date & Time of Evaluation Date of Evaluation: 12/15/17 Time of Evaluation: 06:42 - Subjective Subjective: Dr. Ambrose's Service, Anand Oconnell Photo Journalist-PGY1 Patient seen and examined at bedside. Per nursing no acute events occurred overnight. The patient reports feeling ok this morning . The patient is tolerating diet with no complaints. The patient reports having one bowel movement yesterday that was normal.. The patient denies any lightheadedness , dizziness ,changes in vision, headache, chest pain, fevers, chills, abdominal pain, or any other complaints. Objective - Vital Signs/Intake and Output Vital Signs (last 24 hours): Temp Pulse Resp BP Pulse Ox 98.0 F 78 20 151/67 H 97 12/15/17 16:25 12/15/17 16:25 12/15/17 16:25 12/15/17 16:25 12/15/17 16:25 Intake and Output: 12/15/17 12/16/17 18:59 06:59 Intake Total 300 Output Total 1000 Balance -700 - Medications Medications: Current Medications Amlodipine Besylate (Norvasc) 5 mg PO DAILY [facility] Last Admin: 12/15/17 10:51 Dose: 5 mg Heparin Sodium (Porcine) (Heparin) 5,000 units SC Q12 [facility] Last Admin: 12/15/17 10:51 Dose: 5,000 units Sodium Chloride (Sodium Chloride 0.9%) 1,000 mls @ 100 mls/hr IV .Q10H [facility] Last Admin: 12/15/17 09:00 Dose: 100 mls/hr Lorazepam (Ativan) 1 mg IVP Q6H PRN PRN Reason: Symptoms of alcohol withdrawl Pantoprazole Sodium (Protonix Ec Tab) 40 mg PO DAILY [facility] Last Admin: 12/15/17 10:51 Dose: 40 mg Tamsulosin HCl (Flomax) 0.4 mg PO DAILY [facility] Last Admin: 12/15/17 10:51 Dose: 0.4 mg - Labs Labs: 12/15/17 04:10 12/15/17 04:10 PT 11.3 SECONDS (9.7-12.2) 12/14/17 21:41 INR 1.0 12/14/17 21:41 APTT 26 SECONDS (21-34) 12/14/17 21:41 - Head Exam Head Exam: ATRAUMATIC, NORMAL INSPECTION, NORMOCEPHALIC - Eye Exam Eye Exam: EOMI, Normal appearance, PERRL. absent: Periorbital tenderness Pupil Exam: NORMAL ACCOMODATION, PERRL. absent: Irregular, Unequal - ENT Exam ENT Exam: Mucous Membranes Moist, Normal Exam, Normal Oropharynx - Neck Exam Neck Exam: Normal Inspection. absent: Lymphadenopathy, Thyromegaly - Respiratory Exam Respiratory Exam: Clear to Ausculation Bilateral, NORMAL BREATHING PATTERN. absent: Chest Wall Tenderness, Prolonged Expiratory Phase, Respiratory Distress - Cardiovascular Exam Cardiovascular Exam: REGULAR RHYTHM, RRR, +S1, +S2. absent: Gallop, Rubs - GI/Abdominal Exam GI & Abdominal Exam: Soft, Normal Bowel Sounds. absent: Tenderness, Hyperactive Bowel Sounds - Exam Additional comments: Catheter placed. - Extremities Exam Extremities Exam: Full ROM, Normal Inspection. absent: Joint Swelling, Pedal Edema, Tenderness - Back Exam Back Exam: NORMAL INSPECTION. absent: CVA tenderness (L), CVA tenderness (R), paraspinal tenderness - Neurological Exam Neurological Exam: Alert, Awake, CN II-XII Intact, Oriented x3 - Psychiatric Exam Psychiatric exam: Normal Affect, Normal Mood - Skin Skin Exam: Dry, Intact, Normal Color Assessment and Plan - Assessment and Plan (Free Text) Assessment: 67 yo male with a PMHx of colon CA s/p resection w/ Dr. Dave in July 2017 coming in with urinary retention and found to be hyponatremic 124 in the ED. Plan: Urinary Retention Urology consulted- Dr. Carlos Iqbal - help appreciated Total PSA 14.5, Free PSA 1.4 (12/07/17) Childress in place Beer Potomania Hx Alcohol Abuse Hyponatremia Na 124 Serum 298, urine osm 160, urine random Na 28 Fluid Restriction, continue to monitor Continue Ativan 1mg IVP Q6H Symptoms of Alcohol Withdrawal History of HTN Continue home meds: Norvasc 5mg PO daily Lisinopril 20mg PO daily (hold for hyponatremia), HCTZ 25mg PO daily (hold for hyponatremia) Currently normatensive, will continue to monitor Hx of colon CA s/p resection Resection done in July [address] Dave Prophylactic Measures GI PPX: Protonix 40mg PO daily DVT PPX: SCDs, Heparin Q12 Will discuss with Dr. Ambrose. <Jose Miguel Ambrose Jr. - Last Filed: 12/21/17 19:16> Objective - Vital Signs/Intake and Output Vital Signs (last 24 hours): Temp Pulse Resp BP Pulse Ox 97.9 F 81 20 150/83 96 12/21/17 16:36 12/21/17 16:36 12/21/17 16:36 12/21/17 16:36 12/21/17 16:36 Intake and Output: 12/21/17 12/22/17 18:59 06:59 Intake Total 1100 Output Total 500 Balance 600 - Medications Medications: Current Medications Amlodipine Besylate (Norvasc) 5 mg PO DAILY [facility] Last Admin: 12/21/17 10:14 Dose: 5 mg Docusate Sodium (Colace) 100 mg PO TID [facility] Last Admin: 12/21/17 18:13 Dose: 100 mg Heparin Sodium (Porcine) (Heparin) 5,000 units SC Q12 [facility] Last Admin: 12/17/17 22:01 Dose: 5,000 units Ceftriaxone Sodium 1 gm/ (Sodium Chloride) 100 mls @ 100 mls/hr IVPB DAILY [facility] Last Admin: 12/21/17 10:13 Dose: 100 mls/hr Lorazepam (Ativan) 1 mg IVP Q6H PRN PRN Reason: Symptoms of alcohol withdrawl Pantoprazole Sodium (Protonix Ec Tab) 40 mg PO DAILY [facility] Last Admin: 12/21/17 10:14 Dose: 40 mg Tamsulosin HCl (Flomax) 0.4 mg PO DAILY [facility] Last Admin: 12/21/17 10:14 Dose: 0.4 mg - Labs Labs: 12/21/17 08:39 12/21/17 08:39 PT 11.3 SECONDS (9.7-12.2) 12/14/17 21:41 INR 1.0 12/14/17 21:41 APTT 26 SECONDS (21-34) 12/14/17 21:41 Attending/Attestation - Attestation I have personally seen and examined this patient.: Yes I have fully participated in the care of the patient.: Yes I have reviewed all pertinent clinical information, including history, physical exam and plan: Yes Notes (Text): 12/21/17 19:15 Agree with resident note and plan of care
[2017-12-16 08:19] LABS: BASO % 0.8 % (0.0-2.0); EOS # 0.1 K/uL (0.0-0.7); EOS % 1.2 % (0.0-4.0); HEMOGLOBIN 12.8 g/dL (12.0-18.0); LYMPH # 1.6 K/uL (1.0-4.3); LYMPH % 31.6 % (20.0-40.0); MEAN CORPUSCULAR HEMOGLOBIN 31.8 pg (27.0-31.0); MEAN CORPUSCULAR HGB CONC 34.5 g/dL (33.0-37.0); MEAN PLATELET VOLUME 9.3 fL (7.2-11.7); MONO # 0.4 K/uL (0.0-0.8); MONO % 8.4 % (0.0-10.0); NEUT # 2.9 K/uL (1.8-7.0); NRBC % 0.1 % (0.0-2.0); RBC 4.04 Mil/uL (4.40-5.90); RED CELL DISTRIBUTION WIDTH 13.3 % (11.5-14.5); WHITE BLOOD COUNT 5.1 K/uL (4.8-10.8)
[2017-12-16 08:33] LABS: ALB/GLOB RATIO 1.2 (1.0-2.1); ALBUMIN 3.5 g/dL (3.5-5.0); ALT/SGPT 39 U/L (21-72); AST/SGOT 28 U/L (17-59); BLOOD UREA NITROGEN 10 mg/dL (9-20); CALCIUM 8.2 mg/dl (8.6-10.4); GFR AFRICAN-AMERICAN > 60; GFR NON-AFRICAN AMERICAN > 60
--- NOTE | 2017-12-16 08:46 | CP.PCM.PN ---
<Melissa Pro - Last Filed: 12/16/17 19:58> Subjective - Date & Time of Evaluation Date of Evaluation: 12/16/17 Time of Evaluation: 07:00 - Subjective Subjective: Medicine Progress Note: Patient was seen and examined at bedside in the AM. Per nurse no acute events overnight. Patient denies shortness of breath, chest pain, palpitations, nausea , vomiting, fever, diarrhea, or constipation. Objective - Vital Signs/Intake and Output Vital Signs (last 24 hours): Temp Pulse Resp BP Pulse Ox 98.0 F 68 20 117/64 96 12/16/17 07:45 12/16/17 07:45 12/16/17 07:45 12/16/17 07:45 12/16/17 07:45 Intake and Output: 12/16/17 12/16/17 06:59 18:59 Intake Total 1300 800 Balance 1300 800 - Medications Medications: Current Medications Amlodipine Besylate (Norvasc) 5 mg PO DAILY [facility] Last Admin: 12/15/17 10:51 Dose: 5 mg Heparin Sodium (Porcine) (Heparin) 5,000 units SC Q12 [facility] Last Admin: 12/15/17 22:00 Dose: 5,000 units Sodium Chloride (Sodium Chloride 0.9%) 1,000 mls @ 100 mls/hr IV .Q10H [facility] Last Admin: 12/15/17 22:26 Dose: 100 mls/hr Lorazepam (Ativan) 1 mg IVP Q6H PRN PRN Reason: Symptoms of alcohol withdrawl Pantoprazole Sodium (Protonix Ec Tab) 40 mg PO DAILY [facility] Last Admin: 12/15/17 10:51 Dose: 40 mg Tamsulosin HCl (Flomax) 0.4 mg PO DAILY [facility] Last Admin: 12/15/17 10:51 Dose: 0.4 mg - Labs Labs: 12/16/17 08:06 12/16/17 08:06 PT 11.3 SECONDS (9.7-12.2) 12/14/17 21:41 INR 1.0 12/14/17 21:41 APTT 26 SECONDS (21-34) 12/14/17 21:41 - Constitutional Appears: No Acute Distress - Head Exam Head Exam: ATRAUMATIC, NORMAL INSPECTION - Eye Exam Eye Exam: EOMI, Normal appearance - ENT Exam ENT Exam: Mucous Membranes Moist - Respiratory Exam Respiratory Exam: Clear to Ausculation Bilateral, NORMAL BREATHING PATTERN - Cardiovascular Exam Cardiovascular Exam: REGULAR RHYTHM, +S1, +S2 - GI/Abdominal Exam GI & Abdominal Exam: Soft, Normal Bowel Sounds. absent: Tenderness - Exam Additional comments: ryan in place - Extremities Exam Extremities Exam: Normal Inspection. absent: Joint Swelling, Pedal Edema, Tenderness - Neurological Exam Neurological Exam: Alert, Awake, Oriented x3 - Psychiatric Exam Psychiatric exam: Normal Affect, Normal Mood - Skin Skin Exam: Normal Color, Warm Assessment and Plan - Assessment and Plan (Free Text) Assessment: 67 yo male with a PMHx of colon CA s/p resection w/ Dr. Dave in July 2017 coming in with urinary retention and found to be hyponatremic 124 in the ED. Urinary Retention Urology consulted- Dr. Carlos Iqbal - help appreciated Total PSA 14.5, Free PSA 1.4 (12/07/17) Ryan in place Possible TURP on Monday - will follow up with Dr. Iqbal Beer Potomania Hx Alcohol Abuse Hyponatremia Na 124 Serum 298, urine osm 160, urine random Na 28 Fluid Restriction, continue to monitor Continue Ativan 1mg IVP Q6H Symptoms of Alcohol Withdrawal History of HTN Continue home meds: Norvasc 5mg PO daily Lisinopril 20mg PO daily (hold for hyponatremia), HCTZ 25mg PO daily (hold for hyponatremia) Currently normatensive, will continue to monitor Hx of colon CA s/p resection Resection done in July [address] Dave Prophylactic Measures GI PPX: Protonix 40mg PO daily DVT PPX: SCDs, Heparin Q12 Case Discussed with Dr. Halie Por PGY-1 <Jose Miguel Ambrose Jr. - Last Filed: 12/21/17 19:18> Objective - Vital Signs/Intake and Output Vital Signs (last 24 hours): Temp Pulse Resp BP Pulse Ox 97.9 F 81 20 150/83 96 12/21/17 16:36 12/21/17 16:36 12/21/17 16:36 12/21/17 16:36 12/21/17 16:36 Intake and Output: 12/21/17 12/22/17 18:59 06:59 Intake Total 1100 Output Total 500 Balance 600 - Medications Medications: Current Medications Amlodipine Besylate (Norvasc) 5 mg PO DAILY [facility] Last Admin: 12/21/17 10:14 Dose: 5 mg Docusate Sodium (Colace) 100 mg PO TID [facility] Last Admin: 12/21/17 18:13 Dose: 100 mg Heparin Sodium (Porcine) (Heparin) 5,000 units SC Q12 [facility] Last Admin: 12/17/17 22:01 Dose: 5,000 units Ceftriaxone Sodium 1 gm/ (Sodium Chloride) 100 mls @ 100 mls/hr IVPB DAILY [facility] Last Admin: 12/21/17 10:13 Dose: 100 mls/hr Lorazepam (Ativan) 1 mg IVP Q6H PRN PRN Reason: Symptoms of alcohol withdrawl Pantoprazole Sodium (Protonix Ec Tab) 40 mg PO DAILY [facility] Last Admin: 12/21/17 10:14 Dose: 40 mg Tamsulosin HCl (Flomax) 0.4 mg PO DAILY [facility] Last Admin: 12/21/17 10:14 Dose: 0.4 mg - Labs Labs: 12/21/17 08:39 12/21/17 08:39 PT 11.3 SECONDS (9.7-12.2) 12/14/17 21:41 INR 1.0 12/14/17 21:41 APTT 26 SECONDS (21-34) 12/14/17 21:41 Attending/Attestation - Attestation I have personally seen and examined this patient.: Yes I have fully participated in the care of the patient.: Yes I have reviewed all pertinent clinical information, including history, physical exam and plan: Yes Notes (Text): 12/21/17 19:18 Agree with resident note and plan of care
[2017-12-16] MEDS: Pantoprazole 40 mg EC Tab PO SCH (10:16)
[2017-12-16] MEDS: Sodium Chloride 0.9% 1,000 ML IV SCH (15:00)
[2017-12-17] MEDS: Sodium Chloride 0.9% 1,000 ML IV SCH ×4 (02:35→11:44)
--- NOTE | 2017-12-17 04:37 | CP.PCM.PN ---
<Hazel Hdz - Last Filed: 12/17/17 04:32> Subjective - Date & Time of Evaluation Date of Evaluation: 12/17/17 Time of Evaluation: 04:32 - Subjective Subjective: Medicine progress note for Dr. Ambrose's service Patient was seen and examined at bedside in no acute distress. Patient was sleeping comfortably. Patient reports he is feeling well and has no complaints. Patient denies chest pain, shortness of breath, abdominal pain, nausea, vomiting , fevers, and headaches. Objective - Vital Signs/Intake and Output Vital Signs (last 24 hours): Temp Pulse Resp BP Pulse Ox 97.9 F 71 20 126/77 98 12/17/17 00:32 12/17/17 00:32 12/17/17 00:32 12/17/17 00:32 12/17/17 00:32 Intake and Output: 12/16/17 12/17/17 18:59 06:59 Intake Total 2100 800 Output Total 900 1200 Balance 1200 -400 - Medications Medications: Current Medications Amlodipine Besylate (Norvasc) 5 mg PO DAILY [facility] Last Admin: 12/16/17 10:16 Dose: 5 mg Heparin Sodium (Porcine) (Heparin) 5,000 units SC Q12 [facility] Last Admin: 12/16/17 21:37 Dose: 5,000 units Sodium Chloride (Sodium Chloride 0.9%) 1,000 mls @ 100 mls/hr IV .Q10H [facility] Last Admin: 12/17/17 02:37 Dose: 100 mls/hr Lorazepam (Ativan) 1 mg IVP Q6H PRN PRN Reason: Symptoms of alcohol withdrawl Pantoprazole Sodium (Protonix Ec Tab) 40 mg PO DAILY [facility] Last Admin: 12/16/17 10:16 Dose: 40 mg Tamsulosin HCl (Flomax) 0.4 mg PO DAILY [facility] Last Admin: 12/16/17 10:17 Dose: 0.4 mg - Labs Labs: 12/16/17 08:06 12/16/17 08:06 PT 11.3 SECONDS (9.7-12.2) 12/14/17 21:41 INR 1.0 12/14/17 21:41 APTT 26 SECONDS (21-34) 12/14/17 21:41 - Constitutional Appears: No Acute Distress - Head Exam Head Exam: ATRAUMATIC, NORMAL INSPECTION - Eye Exam Eye Exam: EOMI - ENT Exam ENT Exam: Mucous Membranes Moist - Respiratory Exam Respiratory Exam: Clear to Ausculation Bilateral, NORMAL BREATHING PATTERN. absent: Rhonchi, Wheezes, Respiratory Distress - Cardiovascular Exam Cardiovascular Exam: REGULAR RHYTHM, +S1, +S2 - GI/Abdominal Exam GI & Abdominal Exam: Soft, Normal Bowel Sounds. absent: Distended, Firm, Tenderness - Extremities Exam Extremities Exam: Normal Inspection. absent: Pedal Edema, Tenderness - Neurological Exam Neurological Exam: Alert, Awake, Oriented x3 - Psychiatric Exam Psychiatric exam: Normal Affect, Normal Mood - Skin Skin Exam: Dry, Intact, Normal Color, Warm Assessment and Plan - Assessment and Plan (Free Text) Plan: 67 yo male with a PMHx of colon CA s/p resection w/ Dr. Dave in July 2017 coming in with urinary retention and found to be hyponatremic 124 in the ED. Urinary Retention Urology consulted- Dr. Carlos Iqbla - help appreciated Total PSA 14.5, Free PSA 1.4 (12/07/17) Childress in place Possible TURP on Monday - will follow up with Dr. Iqbal [facility] Hx Alcohol Abuse Hyponatremia Na 124, improving, Na 136 on 12/16 Serum 298, urine osm 160, urine random Na 28 Fluid Restriction, continue to monitor Continue Ativan 1mg IVP Q6H Symptoms of Alcohol Withdrawal History of HTN Continue home meds: Norvasc 5mg PO daily Lisinopril 20mg PO daily (hold for hyponatremia), HCTZ 25mg PO daily (hold for hyponatremia) Currently normotensive, will continue to monitor Hx of colon CA s/p resection Resection done in July [address] Dave Prophylactic Measures GI PPX: Protonix 40mg PO daily DVT PPX: SCDs, Heparin Q12 Will discuss with Dr. Ambrose <Jose Miguel Ambrose Jr. - Last Filed: 12/21/17 19:20> Objective - Vital Signs/Intake and Output Vital Signs (last 24 hours): Temp Pulse Resp BP Pulse Ox 97.9 F 81 20 150/83 96 12/21/17 16:36 12/21/17 16:36 12/21/17 16:36 12/21/17 16:36 12/21/17 16:36 Intake and Output: 12/21/17 12/22/17 18:59 06:59 Intake Total 1100 Output Total 500 Balance 600 - Medications Medications: Current Medications Amlodipine Besylate (Norvasc) 5 mg PO DAILY [facility] Last Admin: 12/21/17 10:14 Dose: 5 mg Docusate Sodium (Colace) 100 mg PO TID [facility] Last Admin: 12/21/17 18:13 Dose: 100 mg Heparin Sodium (Porcine) (Heparin) 5,000 units SC Q12 [facility] Last Admin: 12/17/17 22:01 Dose: 5,000 units Ceftriaxone Sodium 1 gm/ (Sodium Chloride) 100 mls @ 100 mls/hr IVPB DAILY [facility] Last Admin: 12/21/17 10:13 Dose: 100 mls/hr Lorazepam (Ativan) 1 mg IVP Q6H PRN PRN Reason: Symptoms of alcohol withdrawl Pantoprazole Sodium (Protonix Ec Tab) 40 mg PO DAILY [facility] Last Admin: 12/21/17 10:14 Dose: 40 mg Tamsulosin HCl (Flomax) 0.4 mg PO DAILY [facility] Last Admin: 12/21/17 10:14 Dose: 0.4 mg - Labs Labs: 12/21/17 08:39 12/21/17 08:39 PT 11.3 SECONDS (9.7-12.2) 12/14/17 21:41 INR 1.0 12/14/17 21:41 APTT 26 SECONDS (21-34) 12/14/17 21:41 Attending/Attestation - Attestation I have personally seen and examined this patient.: Yes I have fully participated in the care of the patient.: Yes I have reviewed all pertinent clinical information, including history, physical exam and plan: Yes Notes (Text): 12/21/17 19:20 Agree with resident note and plan of care
[2017-12-17 08:27] LABS: BASO # 0.1 K/uL (0.0-0.2); EOS # 0.2 K/uL (0.0-0.7); EOS % 2.5 % (0.0-4.0); HEMOGLOBIN 12.6 g/dL (12.0-18.0); LYMPH # 2.1 K/uL (1.0-4.3); MEAN CELL VOLUME 92.6 fL (80.0-94.0); MEAN CORPUSCULAR HEMOGLOBIN 31.6 pg (27.0-31.0); MEAN CORPUSCULAR HGB CONC 34.1 g/dL (33.0-37.0); MEAN PLATELET VOLUME 10.3 fL (7.2-11.7); MONO # 0.4 K/uL (0.0-0.8); MONO % 6.4 % (0.0-10.0); NEUT # 3.6 K/uL (1.8-7.0); NEUT % 57.1 % (50.0-75.0); NRBC % 0.1 % (0.0-2.0); RBC 3.99 Mil/uL (4.40-5.90); RED CELL DISTRIBUTION WIDTH 13.5 % (11.5-14.5); WHITE BLOOD COUNT 6.4 K/uL (4.8-10.8)
[2017-12-17 09:05] LABS: ALB/GLOB RATIO 1.2 (1.0-2.1); ALBUMIN 3.4 g/dL (3.5-5.0); ALT/SGPT 39 U/L (21-72); AST/SGOT 31 U/L (17-59); BLOOD UREA NITROGEN 13 mg/dL (9-20); CALCIUM 8.1 mg/dl (8.6-10.4); GFR AFRICAN-AMERICAN > 60; GFR NON-AFRICAN AMERICAN > 60; MAGNESIUM 1.8 mg/dL (1.6-2.3)
[2017-12-17] MEDS: Pantoprazole 40 mg EC Tab PO SCH (09:31)
--- NOTE | 2017-12-18 02:32 | CON ---
DATE: UROLOGY CONSULTATION UROLOGY CONSULTATION REQUESTED BY: Jose Miguel Ambrose MD UROLOGY CONSULTATION FILLED BY: Hien Iqbal MD REASON FOR CONSULTATION: Urinary retention. HISTORY OF PRESENT ILLNESS: Patient is a 67-year-old male with urinary retention. Patient is in otherwise fair health. Patient presented earlier this month with urinary retention. He was found to have 2 liters within the bladder 031 when the Childress catheter was inserted. Patient was also found to have hyponatremia. The patient subsequently underwent cystoscopy on 12/08. Patient subsequently was discharged from the hospital. The patient was begun on Flomax and had a trial of voiding. He developed urinary retention yesterday, 12/14. Childress catheter was reinserted. Patient had 1500 mL drained. Patient is admitted for evaluation and therapy. Again noted was recurrent hyponatremia. Patient reports good appetite. No recent weight loss. No abdominal pain or flank pain. Patient did have lower abdominal discomfort when he was unable to urinate yesterday. He felt the sensation to void, but was unable to void. No history of previous urolithiasis. No history of previous urinary tract infection. No recent hematuria. No recent fever or rigors. For further details, see current and previous charts. PHYSICAL EXAMINATION: GENERAL: Patient is a well-developed, well-nourished male, appearing his stated age. Patient is awake and alert. ABDOMEN: Soft, nontender, nondistended. No mass or organomegaly. GENITALIA: Without inflammation. Urine is clear via the Childress catheter. IMPRESSION: Urinary retention. History of enlarged prostate. History of hyponatremia. RECOMMENDATION AND PLAN: Childress catheter, indwelling. Urine culture. Patient had been on Flomax. Consider trial of voiding. Consider transurethral resection of the prostate. Serum PSA. Further therapy to follow according to the patient's clinical course as well as results of above as well as patient's desires. Thank you for recommending patient for urology consultation. Hien Iqbal MD cc: Dr. Ambrose
[2017-12-18 06:52] LABS: BASO # 0.1 K/uL (0.0-0.2); BASO % 1.1 % (0.0-2.0); EOS # 0.1 K/uL (0.0-0.7); EOS % 1.8 % (0.0-4.0); HEMOGLOBIN 12.5 g/dL (12.0-18.0); LYMPH # 1.6 K/uL (1.0-4.3); LYMPH % 28.7 % (20.0-40.0); MEAN CELL VOLUME 92.2 fL (80.0-94.0); MEAN CORPUSCULAR HEMOGLOBIN 31.5 pg (27.0-31.0); MEAN CORPUSCULAR HGB CONC 34.2 g/dL (33.0-37.0); MEAN PLATELET VOLUME 9.2 fL (7.2-11.7); MONO # 0.4 K/uL (0.0-0.8); MONO % 8.2 % (0.0-10.0); NEUT # 3.3 K/uL (1.8-7.0); NEUT % 60.2 % (50.0-75.0); RBC 3.95 Mil/uL (4.40-5.90); RED CELL DISTRIBUTION WIDTH 13.5 % (11.5-14.5); WHITE BLOOD COUNT 5.4 K/uL (4.8-10.8)
[2017-12-18 07:14] LABS: ALB/GLOB RATIO 1.3 (1.0-2.1); ALBUMIN 3.4 g/dL (3.5-5.0); ALT/SGPT 36 U/L (21-72); AST/SGOT 24 U/L (17-59); BLOOD UREA NITROGEN 12 mg/dL (9-20); GFR AFRICAN-AMERICAN > 60; GFR NON-AFRICAN AMERICAN > 60
--- NOTE | 2017-12-18 07:21 | CP.PCM.PN ---
<Hazel Hdz - Last Filed: 12/18/17 17:37> Subjective - Date & Time of Evaluation Date of Evaluation: 12/18/17 Time of Evaluation: 07:21 - Subjective Subjective: Medicine progress note for Dr. Ambrose's service Patient was seen and examined at bedside in no acute distress. Patient s/p TURP with Dr. Iqbal. Patient reports he is feeling well and has no complaints except mild soreness s/p procedure. Patient denies chest pain, shortness of breath, abdominal pain, nausea, vomiting, fevers, and headaches. Objective - Vital Signs/Intake and Output Vital Signs (last 24 hours): Temp Pulse Resp BP Pulse Ox 97.8 F 70 20 153/77 H 98 12/17/17 23:58 12/17/17 23:58 12/17/17 23:58 12/17/17 23:58 12/17/17 23:58 Intake and Output: 12/18/17 12/18/17 06:59 18:59 Intake Total 950 Output Total 2000 Balance -1050 - Medications Medications: Current Medications Amlodipine Besylate (Norvasc) 5 mg PO DAILY [facility] Last Admin: 12/17/17 09:31 Dose: 5 mg Heparin Sodium (Porcine) (Heparin) 5,000 units SC Q12 [facility] Last Admin: 12/17/17 22:01 Dose: 5,000 units Lorazepam (Ativan) 1 mg IVP Q6H PRN PRN Reason: Symptoms of alcohol withdrawl Pantoprazole Sodium (Protonix Ec Tab) 40 mg PO DAILY [facility] Last Admin: 12/17/17 09:31 Dose: 40 mg Tamsulosin HCl (Flomax) 0.4 mg PO DAILY [facility] Last Admin: 12/17/17 09:31 Dose: 0.4 mg - Labs Labs: 12/18/17 06:45 12/18/17 06:45 PT 11.3 SECONDS (9.7-12.2) 12/14/17 21:41 INR 1.0 12/14/17 21:41 APTT 26 SECONDS (21-34) 12/14/17 21:41 - Additional Findings Additional findings: - Constitutional Appears: No Acute Distress - Head Exam Head Exam: ATRAUMATIC, NORMAL INSPECTION - Eye Exam Eye Exam: EOMI - ENT Exam ENT Exam: Mucous Membranes Moist - Respiratory Exam Respiratory Exam: Clear to Ausculation Bilateral, NORMAL BREATHING PATTERN. absent: Rhonchi, Wheezes, Respiratory Distress - Cardiovascular Exam Cardiovascular Exam: REGULAR RHYTHM, +S1, +S2 - GI/Abdominal Exam GI & Abdominal Exam: Soft, Normal Bowel Sounds. absent: Distended, Firm, Tenderness - Exam Exam: s/p TURP; guaze-blood tinged -Extremities Exam Extremities Exam: Normal Inspection. absent: Pedal Edema, Tenderness - Neurological Exam Neurological Exam: Alert, Awake, Oriented x3 - Psychiatric Exam Psychiatric exam: Normal Affect, Normal Mood - Skin Skin Exam: Dry, Intact, Normal Color, Warm Assessment and Plan - Assessment and Plan (Free Text) Plan: 67 yo male with a PMHx of colon CA s/p resection w/ Dr. Dave in July 2017 coming in with urinary retention and found to be hyponatremic 124 in the ED. Urinary Retention * Urology consulted- Dr. Carlos Iqbal - help appreciated * starteing Rocephin 1gm IV Q24 on 12/19/17 * Total PSA 14.5, Free PSA 1.4 (12/07/17) * Childress in place * s/p TURP w/Dr. Iqbal (12/18/17) Beer Potomania, Hx Alcohol Abuse, Hyponatremia * Na 124, improving, Na 136 on 12/16 * Serum 298, urine osm 160, urine random Na 28 * Fluid Restriction, continue to monitor * Continue Ativan 1mg IVP Q6H Symptoms of Alcohol Withdrawal History of HTN * Continue home meds: Norvasc 5mg PO daily * Lisinopril 20mg PO daily (hold for hyponatremia), HCTZ 25mg PO daily (hold for hyponatremia) * Currently normotensive, will continue to monitor Hx of colon CA s/p resection * Resection done in July [address] Dave Prophylactic Measures * GI PPX: Protonix 40mg PO daily * DVT PPX: SCDs, Heparin Q12 Discuss[address] Ambrose <Jose Miguel Ambrose Jr. - Last Filed: 12/21/17 19:23> Objective - Vital Signs/Intake and Output Vital Signs (last 24 hours): Temp Pulse Resp BP Pulse Ox 97.9 F 81 20 150/83 96 12/21/17 16:36 12/21/17 16:36 12/21/17 16:36 12/21/17 16:36 12/21/17 16:36 Intake and Output: 12/21/17 12/22/17 18:59 06:59 Intake Total 1100 Output Total 500 Balance 600 - Medications Medications: Current Medications Amlodipine Besylate (Norvasc) 5 mg PO DAILY [facility] Last Admin: 12/21/17 10:14 Dose: 5 mg Docusate Sodium (Colace) 100 mg PO TID [facility] Last Admin: 12/21/17 18:13 Dose: 100 mg Heparin Sodium (Porcine) (Heparin) 5,000 units SC Q12 [facility] Last Admin: 12/17/17 22:01 Dose: 5,000 units Ceftriaxone Sodium 1 gm/ (Sodium Chloride) 100 mls @ 100 mls/hr IVPB DAILY [facility] Last Admin: 12/21/17 10:13 Dose: 100 mls/hr Lorazepam (Ativan) 1 mg IVP Q6H PRN PRN Reason: Symptoms of alcohol withdrawl Pantoprazole Sodium (Protonix Ec Tab) 40 mg PO DAILY [facility] Last Admin: 12/21/17 10:14 Dose: 40 mg Tamsulosin HCl (Flomax) 0.4 mg PO DAILY [facility] Last Admin: 12/21/17 10:14 Dose: 0.4 mg - Labs Labs: 12/21/17 08:39 12/21/17 08:39 PT 11.3 SECONDS (9.7-12.2) 12/14/17 21:41 INR 1.0 12/14/17 21:41 APTT 26 SECONDS (21-34) 12/14/17 21:41 Attending/Attestation - Attestation I have personally seen and examined this patient.: Yes I have fully participated in the care of the patient.: Yes I have reviewed all pertinent clinical information, including history, physical exam and plan: Yes Notes (Text): 12/21/17 19:23 Agree with resident note and plan of care
[2017-12-18] MEDS ORDERED: Lactated Ringer's 1,000 ML IV ONE ×2 (09:36)
[2017-12-18] MEDS ORDERED: Lidocaine Hydrochloride 5 ML INJ ONE (10:39)
[2017-12-18] MEDS ORDERED: Midazolam 2 MG/2 ML VIAL ONE (10:39)
[2017-12-18] MEDS ORDERED: Propofol 10 mg/ml Inj (20 ML) ONE (10:39)
[2017-12-18] MEDS: cefTRIAXone 1 gm 1 GM/100 ML BAG IVPB ONE ×2 (10:43→10:45)
--- NOTE | 2017-12-18 11:57 | PCM.SURG1 ---
Surgeon's Initial Post Op Note - Surgeon's Notes Surgeon: Heather Iqbal Irrigating Pump Operator: none Type of Anesthesia: General LMA Pre-Operative Diagnosis: urinary retention. enlarged prostate Operative Findings: same Post-Operative Diagnosis: same Operation Performed: TURP Specimen/Specimens Removed: prostate Estimated Blood Loss: EBL {In ML}: 50 Blood Products Given: N/A Post-Op Condition: Good Date of Surgery/Procedure: 12/18/17 Time of Surgery/Procedure: 11:40
[2017-12-18] MEDS: Pantoprazole 40 mg EC Tab PO SCH (13:50)
[2017-12-18] MEDS: Potassium Ch 20mEq in D5-1/2NS 1,000 ML IV SCH (13:52)
[2017-12-19] MEDS: Potassium Ch 20mEq in D5-1/2NS 1,000 ML IV SCH (05:19)
--- NOTE | 2017-12-19 07:44 | CP.PCM.PN ---
<Hazel Hdz - Last Filed: 12/19/17 12:55> Subjective - Date & Time of Evaluation Date of Evaluation: 12/19/17 Time of Evaluation: 07:43 - Subjective Subjective: Medicine progress note for Dr. Ambrose's service Patient was seen and examined at bedside in no acute distress. Patient states he is feeling well. He does admits to mild tenderness post-op, but otherwise no complaints. He reports his urine is sometimes white and sometimes pink, but has not noticed much bleeding. Patient denies chest pain, abdominal pain, nausea, vomiting, fevers, shortness of breath, and leg pain/swelling. Objective - Vital Signs/Intake and Output Vital Signs (last 24 hours): Temp Pulse Resp BP Pulse Ox 97.4 F L 83 20 130/74 97 12/19/17 00:20 12/19/17 00:20 12/19/17 00:20 12/19/17 00:20 12/19/17 00:20 Intake and Output: 12/19/17 12/19/17 06:59 18:59 Intake Total 9660 6500 Output Total 8800 7775 Balance 860 -1275 - Medications Medications: Current Medications Amlodipine Besylate (Norvasc) 5 mg PO DAILY [facility] Last Admin: 12/18/17 13:51 Dose: 5 mg Heparin Sodium (Porcine) (Heparin) 5,000 units SC Q12 [facility] Last Admin: 12/17/17 22:01 Dose: 5,000 units Potassium Chloride/Dextrose/Sod Cl (Potassium Chl 20 Meq In D5-1/2ns) 1,000 mls @ 60 mls/hr IV .[id number] [facility] Last Admin: 12/19/17 05:19 Dose: 60 mls/hr Ceftriaxone Sodium 1 gm/ (Sodium Chloride) 100 mls @ 100 mls/hr IVPB DAILY [facility] Lorazepam (Ativan) 1 mg IVP Q6H PRN PRN Reason: Symptoms of alcohol withdrawl Pantoprazole Sodium (Protonix Ec Tab) 40 mg PO DAILY [facility] Last Admin: 12/18/17 13:50 Dose: 40 mg Tamsulosin HCl (Flomax) 0.4 mg PO DAILY [facility] Last Admin: 12/18/17 13:51 Dose: 0.4 mg - Labs Labs: 12/18/17 06:45 12/18/17 06:45 PT 11.3 SECONDS (9.7-12.2) 12/14/17 21:41 INR 1.0 12/14/17 21:41 APTT 26 SECONDS (21-34) 12/14/17 21:41 - Additional Findings Additional findings: - Constitutional Appears: No Acute Distress - Head Exam Head Exam: ATRAUMATIC, NORMAL INSPECTION - Eye Exam Eye Exam: EOMI - ENT Exam ENT Exam: Mucous Membranes Moist - Respiratory Exam Respiratory Exam: Clear to Ausculation Bilateral, NORMAL BREATHING PATTERN. absent: Rhonchi, Wheezes, Respiratory Distress - Cardiovascular Exam Cardiovascular Exam: REGULAR RHYTHM, +S1, +S2 - GI/Abdominal Exam GI & Abdominal Exam: Soft, Normal Bowel Sounds. absent: Distended, Firm, Tenderness - Exam Exam: s/p TURP; guaze-blood tinged -Extremities Exam Extremities Exam: Normal Inspection. absent: Pedal Edema, Tenderness - Neurological Exam Neurological Exam: Alert, Awake, Oriented x3 - Psychiatric Exam Psychiatric exam: Normal Affect, Normal Mood - Skin Skin Exam: Dry, Intact, Normal Color, Warm Assessment and Plan - Assessment and Plan (Free Text) Plan: Plan: 67 yo male with a PMHx of colon CA s/p resection w/ Dr. Bro in July 2017 coming in with urinary retention and found to be hyponatremic 124 in the ED. Urinary Retention * Urology consulted- Dr. Carlos Iqbal - help appreciated * Continue Rocephin 1gm IV Q24 (started on 12/19/17) * Total PSA 14.5, Free PSA 1.4 (12/07/17) * Childress in place * s/p TURP w/Dr. Iqbal (12/18/17) Beer Potomania, Hx Alcohol Abuse, Hyponatremia * Na 124, improving, Na 136 on 12/16 * Serum 298, urine osm 160, urine random Na 28 * Continue to monitor * Continue Ativan 1mg IVP Q6H Symptoms of Alcohol Withdrawal History of HTN * Continue home meds: Norvasc 5mg PO daily * Lisinopril 20mg PO daily (hold for hyponatremia), HCTZ 25mg PO daily (hold for hyponatremia) * Currently normotensive, will continue to monitor Hx of colon CA s/p resection * Resection done in July [address] Dave Prophylactic Measures * GI PPX: Protonix 40mg PO daily * DVT PPX: SCDs, Heparin Q12 (held) <Jose Miguel Ambrose Jr. - Last Filed: 12/21/17 19:25> Objective - Vital Signs/Intake and Output Vital Signs (last 24 hours): Temp Pulse Resp BP Pulse Ox 97.9 F 81 20 150/83 96 12/21/17 16:36 12/21/17 16:36 12/21/17 16:36 12/21/17 16:36 12/21/17 16:36 Intake and Output: 12/21/17 12/22/17 18:59 06:59 Intake Total 1100 Output Total 500 Balance 600 - Medications Medications: Current Medications Amlodipine Besylate (Norvasc) 5 mg PO DAILY [facility] Last Admin: 12/21/17 10:14 Dose: 5 mg Docusate Sodium (Colace) 100 mg PO TID [facility] Last Admin: 12/21/17 18:13 Dose: 100 mg Heparin Sodium (Porcine) (Heparin) 5,000 units SC Q12 [facility] Last Admin: 12/17/17 22:01 Dose: 5,000 units Ceftriaxone Sodium 1 gm/ (Sodium Chloride) 100 mls @ 100 mls/hr IVPB DAILY [facility] Last Admin: 12/21/17 10:13 Dose: 100 mls/hr Lorazepam (Ativan) 1 mg IVP Q6H PRN PRN Reason: Symptoms of alcohol withdrawl Pantoprazole Sodium (Protonix Ec Tab) 40 mg PO DAILY [facility] Last Admin: 12/21/17 10:14 Dose: 40 mg Tamsulosin HCl (Flomax) 0.4 mg PO DAILY [facility] Last Admin: 12/21/17 10:14 Dose: 0.4 mg - Labs Labs: 12/21/17 08:39 12/21/17 08:39 PT 11.3 SECONDS (9.7-12.2) 12/14/17 21:41 INR 1.0 12/14/17 21:41 APTT 26 SECONDS (21-34) 12/14/17 21:41 Attending/Attestation - Attestation I have personally seen and examined this patient.: Yes I have fully participated in the care of the patient.: Yes I have reviewed all pertinent clinical information, including history, physical exam and plan: Yes Notes (Text): 12/21/17 19:25 Agree with resident note and plan of care
[2017-12-19 08:22] LABS: BASO # 0.1 K/uL (0.0-0.2); BASO % 0.7 % (0.0-2.0); EOS % 0.1 % (0.0-4.0); HEMOGLOBIN 12.8 g/dL (12.0-18.0); LYMPH # 1.4 K/uL (1.0-4.3); LYMPH % 13.6 % (20.0-40.0); MEAN CELL VOLUME 92.3 fL (80.0-94.0); MEAN CORPUSCULAR HEMOGLOBIN 31.3 pg (27.0-31.0); MEAN PLATELET VOLUME 9.3 fL (7.2-11.7); MONO # 0.7 K/uL (0.0-0.8); MONO % 6.6 % (0.0-10.0); NEUT # 8.2 K/uL (1.8-7.0); RBC 4.09 Mil/uL (4.40-5.90); RED CELL DISTRIBUTION WIDTH 13.5 % (11.5-14.5)
[2017-12-19 08:29] LABS: WHITE BLOOD COUNT 10.4 K/uL (4.8-10.8)
[2017-12-19 08:42] LABS: ALB/GLOB RATIO 1.2 (1.0-2.1); ALBUMIN 3.6 g/dL (3.5-5.0); ALT/SGPT 34 U/L (21-72); AST/SGOT 27 U/L (17-59); BLOOD UREA NITROGEN 10 mg/dL (9-20); CALCIUM 8.7 mg/dl (8.6-10.4); GFR AFRICAN-AMERICAN > 60; GFR NON-AFRICAN AMERICAN > 60
--- NOTE | 2017-12-19 10:27 | PCM.URO ---
Urology Progress Note - Subjective Abdominal Pain: No Flank Pain: No Nausea: No Vomiting: No Dsypnea: No Chest Pain: No Fever & Chills: No Other: feeling well - Objective Lab Results Last 24 Hours: Laboratory Results - last 24 hr 12/19/17 12/19/17 08:16 08:16 WBC 10.4 D RBC 4.09 L Hgb 12.8 Hct 37.8 MCV 92.3 MCH 31.3 H MCHC 34.0 RDW 13.5 Plt Count 227 MPV 9.3 Neut % (Auto) 79.0 H Lymph % (Auto) 13.6 L [place] % (Auto) 6.6 Eos % (Auto) 0.1 Baso % (Auto) 0.7 Neut # 8.2 H Lymph # 1.4 [place] # 0.7 Eos # 0.0 Baso # 0.1 Sodium 137 Potassium 3.7 Chloride 106 Carbon Dioxide 24 Anion Gap 10 BUN 10 Creatinine 0.8 Est GFR ( Amer) > 60 Est GFR (Non-Af Amer) > 60 Random Glucose 96 Calcium 8.7 Total Bilirubin 0.6 AST 27 ALT 34 Alkaline Phosphatase 61 Total Protein 6.8 Albumin 3.6 Globulin 3.1 Albumin/Globulin Ratio 1.2 Intake & Output: Intake & Output 12/18/17 12/19/17 12/19/17 18:59 06:59 18:59 Intake Total 7410 9660 6500 Output Total 88153 8800 7775 Balance -3540 860 -1275 Intake: IV 100 Intake, IV Amount 60 960 Right Forearm 60 960 Oral 250 500 Other 7000 8200 6500 Output: Urine 14158 8800 7775 Urethral (Childress) 2750 Other: # Bowel Movements 0 Vital Signs: Vital Signs - 24 hr 12/18/17 12/18/17 12/18/17 11:31 11:45 12:00 Temperature 97.6 F Pulse Rate 77 75 73 Respiratory 14 13 15 Rate Blood Pressure 137/85 152/76 H 145/80 O2 Sat by Pulse 100 100 98 Oximetry 12/18/17 12/18/17 12/18/17 12:15 12:30 15:57 Temperature 97.4 F L 97.8 F Pulse Rate 71 68 88 Respiratory 17 12 20 Rate Blood Pressure 155/84 H 141/87 121/67 O2 Sat by Pulse 98 98 95 Oximetry 12/18/17 12/19/17 12/19/17 16:00 00:20 07:45 Temperature 97.8 F 97.4 F L 97.6 F Pulse Rate 88 83 65 Respiratory 20 20 20 Rate Blood Pressure 121/67 130/74 142/79 O2 Sat by Pulse 95 97 97 Oximetry - Physical Exam Abdominal Exam: Soft, Non-Tender, Non-Distended Back: No CVA Tenderness Genitalia: Without Inflammation Urine Color: [place] Extremities: Normal: Bilateral - Male Phallus: Normal Scrotum: Normal Testes: Normal: Bilateral - Plan Catheter Care: Yes Ambulation - Out of Bed: Yes Discontinue Intravenous Fluids: Yes Intake & Output: Yes See Orders: Yes Additional Information: Imp: progressing well, p turp - Date & Time of Note Date: 12/19/17 Time: 10:27
[2017-12-19] MEDS: Pantoprazole 40 mg EC Tab PO SCH (11:00)
--- NOTE | 2017-12-19 15:23 | OP ---
PROCEDURE DATE: 12/18/2017 UROLOGY OPERATIVE REPORT PREOPERATIVE DIAGNOSES: 1. Urinary retention. 2. Enlarged prostate. POSTOPERATIVE DIAGNOSES: 1. Urinary retention. 2. Enlarged prostate. PROCEDURE: Transurethral resection of the prostate. OPERATING SURGEON: Hien Iqbal M.D. DESCRIPTION OF PROCEDURE: Procedure as follows, the patient was placed in lithotomy position after administration of general anesthesia via laryngeal mask airway. The abdomen and genitalia were prepped and draped in sterile fashion. A 26-Syriac continuous flow resectoscope sheath was introduced under direct vision. Procedure was performed under video endoscopic control. Urethra, prostate and bladder were inspected. FINDINGS: There was no stricture in the anterior urethra. There was evidence of predominantly lateral hypertrophy. There is a small middle lobe hypertrophy at the bladder neck. There was marked bladder trabeculation. Ureteral orifices were identified. There was no bladder tumor or stone. The resectoscope was inserted. Resection of the prostate was performed as follows. Resection was begun at the bladder neck on the floor. Thereafter, the anterior roof tissue was resected. Subsequently, the right lateral lobe, and thereafter, the left lateral lobe was resected. The floor and apical prostatic tissue were then resected with the surgeon's index finger with the [place]rik drape in the rectum. Hemostasis was achieved after each section of resection. The prostatic chips were removed using the Microvasive evacuator. Resectoscope was reinserted. The ureteral orifices were intact. There were no residual prostatic chips. Hemostasis was complete. The veru was intact. The resectoscope sheath was removed. Childress catheter was inserted. Bladder drainage was clear with mild traction applied. The patient tolerated procedure without complication. The patient was returned to supine position. The patient was transferred to the PACU in satisfactory condition. Hien Iqbal MD cc: Jose Miguel Ambrose M.D.
[2017-12-20 07:08] LABS: BASO # 0.1 K/uL (0.0-0.2); BASO % 1.1 % (0.0-2.0); EOS # 0.1 K/uL (0.0-0.7); EOS % 1.4 % (0.0-4.0); HEMOGLOBIN 12.3 g/dL (12.0-18.0); LYMPH # 2.2 K/uL (1.0-4.3); LYMPH % 30.7 % (20.0-40.0); MEAN CELL VOLUME 92.4 fL (80.0-94.0); MEAN CORPUSCULAR HEMOGLOBIN 31.7 pg (27.0-31.0); MEAN CORPUSCULAR HGB CONC 34.3 g/dL (33.0-37.0); MEAN PLATELET VOLUME 9.8 fL (7.2-11.7); MONO # 0.5 K/uL (0.0-0.8); MONO % 7.7 % (0.0-10.0); NEUT # 4.2 K/uL (1.8-7.0); NEUT % 59.1 % (50.0-75.0); NRBC % 0.1 % (0.0-2.0); RBC 3.89 Mil/uL (4.40-5.90); RED CELL DISTRIBUTION WIDTH 13.8 % (11.5-14.5); WHITE BLOOD COUNT 7.1 K/uL (4.8-10.8)
[2017-12-20 07:57] LABS: ALB/GLOB RATIO 1.1 (1.0-2.1); ALBUMIN 3.4 g/dL (3.5-5.0); ALT/SGPT 48 U/L (21-72); AST/SGOT 36 U/L (17-59); BLOOD UREA NITROGEN 14 mg/dL (9-20); CALCIUM 8.5 mg/dl (8.6-10.4); GFR AFRICAN-AMERICAN > 60; GFR NON-AFRICAN AMERICAN > 60
[2017-12-20 08:51] VITALS: RESP 20
[2017-12-20] MEDS: Pantoprazole 40 mg EC Tab PO SCH (10:45)
--- NOTE | 2017-12-20 17:45 | CP.PCM.PN ---
Subjective - Date & Time of Evaluation Date of Evaluation: 12/20/17 Time of Evaluation: 08:00 - Subjective Subjective: Medicine progress note for Dr. Ambrose's service Patient was seen and examined at bedside in no acute distress. Patient was laying comfortably in bed. Patient reports having no complaints and feels well. He notes his urine was still slightly pink, however, no other problems s/p TURP. Patient denies chest pain, shortness of breath, abdominal pain, nausea, vomiting, fevers, and headaches. Objective - Vital Signs/Intake and Output Vital Signs (last 24 hours): Temp Pulse Resp BP Pulse Ox 98.0 F 87 20 120/68 96 12/20/17 16:31 12/20/17 16:31 12/20/17 16:31 12/20/17 16:31 12/20/17 16:31 Intake and Output: 12/20/17 12/20/17 06:59 18:59 Intake Total 1350 Output Total 2200 Balance -850 - Medications Medications: Current Medications Amlodipine Besylate (Norvasc) 5 mg PO DAILY [facility] Last Admin: 12/20/17 10:45 Dose: 5 mg Heparin Sodium (Porcine) (Heparin) 5,000 units SC Q12 [facility] Last Admin: 12/17/17 22:01 Dose: 5,000 units Ceftriaxone Sodium 1 gm/ (Sodium Chloride) 100 mls @ 100 mls/hr IVPB DAILY [facility] Last Admin: 12/20/17 10:45 Dose: 100 mls/hr Lorazepam (Ativan) 1 mg IVP Q6H PRN PRN Reason: Symptoms of alcohol withdrawl Pantoprazole Sodium (Protonix Ec Tab) 40 mg PO DAILY [facility] Last Admin: 12/20/17 10:45 Dose: 40 mg Tamsulosin HCl (Flomax) 0.4 mg PO DAILY [facility] Last Admin: 12/20/17 10:45 Dose: 0.4 mg - Labs Labs: 12/20/17 06:58 12/20/17 06:58 PT 11.3 SECONDS (9.7-12.2) 12/14/17 21:41 INR 1.0 12/14/17 21:41 APTT 26 SECONDS (21-34) 12/14/17 21:41 - Additional Findings Additional findings: - Constitutional Appears: No Acute Distress - Head Exam Head Exam: ATRAUMATIC, NORMAL INSPECTION - Eye Exam Eye Exam: EOMI - ENT Exam ENT Exam: Mucous Membranes Moist - Respiratory Exam Respiratory Exam: Clear to Ausculation Bilateral, NORMAL BREATHING PATTERN. absent: Rhonchi, Wheezes, Respiratory Distress - Cardiovascular Exam Cardiovascular Exam: REGULAR RHYTHM, +S1, +S2 - GI/Abdominal Exam GI & Abdominal Exam: Soft, Normal Bowel Sounds. absent: Distended, Firm, Tenderness - Exam Exam: s/p TURP; -Extremities Exam Extremities Exam: Normal Inspection. absent: Pedal Edema, Tenderness - Neurological Exam Neurological Exam: Alert, Awake, Oriented x3 - Psychiatric Exam Psychiatric exam: Normal Affect, Normal Mood - Skin Skin Exam: Dry, Intact, Normal Color, Warm Assessment and Plan - Assessment and Plan (Free Text) Plan: Plan: 67 yo male with a PMHx of colon CA s/p resection w/ Dr. Bro in July 2017 coming in with urinary retention and found to be hyponatremic 124 in the ED. Urinary Retention * Urology consulted- Dr. Carlos Iqbal - help appreciated * Continue Rocephin 1gm IV Q24 (started on 12/19/17) * Total PSA 14.5, Free PSA 1.4 (12/07/17) * Childress in place- Dr. Iqbal is planning to remove on , 12/20/17 * s/p TURP w/Dr. Iqbal (12/18/17) Beer Potomania, Hx Alcohol Abuse, Hyponatremia * Na 124, improving, Na 136 on 12/16 * Serum 298, urine osm 160, urine random Na 28 * Continue to monitor * Continue Ativan 1mg IVP Q6H Symptoms of Alcohol Withdrawal History of HTN * Continue home meds: Norvasc 5mg PO daily * Lisinopril 20mg PO daily (hold for hyponatremia), HCTZ 25mg PO daily (hold for hyponatremia) * Currently normotensive, will continue to monitor Hx of colon CA s/p resection * Resection done in July [address] Dave Prophylactic Measures * GI PPX: Protonix 40mg PO daily * DVT PPX: SCDs, Heparin Q12 (held)
--- NOTE | 2017-12-21 00:19 | PCM.URO ---
Urology Progress Note - General General: Tolerating Diet - Subjective Abdominal Pain: No Flank Pain: No Nausea: No Vomiting: No Dysuria: No Hematuria: No Dsypnea: No Chest Pain: No Fever & Chills: No - Objective Lab Results Last 24 Hours: Laboratory Results - last 24 hr 12/20/17 12/20/17 06:58 06:58 WBC 7.1 RBC 3.89 L Hgb 12.3 Hct 36.0 MCV 92.4 MCH 31.7 H MCHC 34.3 RDW 13.8 Plt Count 205 MPV 9.8 Neut % (Auto) 59.1 Lymph % (Auto) 30.7 [place] % (Auto) 7.7 Eos % (Auto) 1.4 Baso % (Auto) 1.1 Neut # 4.2 Lymph # 2.2 [place] # 0.5 Eos # 0.1 Baso # 0.1 Sodium 134 Potassium 3.9 Chloride 103 Carbon Dioxide 26 Anion Gap 9 L BUN 14 Creatinine 1.0 Est GFR ( Amer) > 60 Est GFR (Non-Af Amer) > 60 Random Glucose 85 Calcium 8.5 L Total Bilirubin 0.5 AST 36 ALT 48 Alkaline Phosphatase 60 Total Protein 6.3 Albumin 3.4 L Globulin 2.9 Albumin/Globulin Ratio 1.1 Intake & Output: Intake & Output 12/20/17 12/20/17 12/21/17 06:59 18:59 06:59 Intake Total 1350 600 Output Total 2200 800 Balance -850 -200 Intake: Intake, IV Amount 100 Right Forearm 100 Oral 1350 500 Output: Urine 2200 800 Urethral (Child[place]) 2200 800 Other: # Voids Urethral (Childress) 1 # Bowel Movements 0 Vital Signs: Vital Signs - 24 hr 12/20/17 12/20/17 12/20/17 07:45 10:45 16:31 Temperature 97.9 F 98.0 F Pulse Rate 70 80 87 Respiratory 20 20 Rate Blood Pressure 124/74 126/76 120/68 O2 Sat by Pulse 95 96 Oximetry - Physical Exam Abdominal Exam: Soft, Non-Tender, Non-Distended Back: No CVA Tenderness Urine Color: Clear, Yellow Extremities: Normal: Bilateral - Male Phallus: Normal Scrotum: Normal Testes: Normal: Bilateral - Plan Catheter Care: Yes Ambulation - Out of Bed: Yes Intake & Output: Yes See Orders: Yes Additional Information: Imp: doing well. P/rec: Catheter in place untill tomorrow. Path - pending. Diuscussed w pt , nursing staff, and resident staff - Date & Time of Note Date: 12/20/17 Time: 11:15
[2017-12-21 08:52] LABS: BASO # 0.1 K/uL (0.0-0.2); EOS # 0.1 K/uL (0.0-0.7); EOS % 1.3 % (0.0-4.0); LYMPH % 25.3 % (20.0-40.0); MEAN CORPUSCULAR HEMOGLOBIN 32.4 pg (27.0-31.0); MEAN CORPUSCULAR HGB CONC 35.2 g/dL (33.0-37.0); MONO # 0.7 K/uL (0.0-0.8); MONO % 8.4 % (0.0-10.0); RBC 4.02 Mil/uL (4.40-5.90); RED CELL DISTRIBUTION WIDTH 13.4 % (11.5-14.5); WHITE BLOOD COUNT 7.8 K/uL (4.8-10.8)
[2017-12-21 09:15] LABS: ALB/GLOB RATIO 1.1 (1.0-2.1); ALBUMIN 3.7 g/dL (3.5-5.0); ALT/SGPT 55 U/L (21-72); AST/SGOT 31 U/L (17-59); BLOOD UREA NITROGEN 14 mg/dL (9-20); CALCIUM 8.9 mg/dl (8.6-10.4); GFR AFRICAN-AMERICAN > 60; GFR NON-AFRICAN AMERICAN > 60
[2017-12-21] MEDS: Pantoprazole 40 mg EC Tab PO SCH (10:14)
--- NOTE | 2017-12-21 14:19 | CP.PCM.PN ---
<Hazel Hdz - Last Filed: 12/21/17 18:18> Subjective - Date & Time of Evaluation Date of Evaluation: 12/21/17 Time of Evaluation: 14:16 - Subjective Subjective: Medicine progress note for Dr. Ambrose's service Patient was seen and examined at bedside in no acute distress. Patient states he is feeling well. Patient had catheter removed and complains of tenderness and blood in urine. Patient denies chest pain, abdominal pain, nausea, vomiting , fevers, shortness of breath, and leg pain/swelling. Objective - Vital Signs/Intake and Output Vital Signs (last 24 hours): Temp Pulse Resp BP Pulse Ox 98.1 F 81 20 117/77 96 12/21/17 08:00 12/21/17 08:00 12/21/17 08:00 12/21/17 08:00 12/21/17 08:00 Intake and Output: 12/21/17 12/21/17 06:59 18:59 Intake Total 600 Output Total 1300 Balance -700 - Medications Medications: Current Medications Amlodipine Besylate (Norvasc) 5 mg PO DAILY [facility] Last Admin: 12/21/17 10:14 Dose: 5 mg Heparin Sodium (Porcine) (Heparin) 5,000 units SC Q12 [facility] Last Admin: 12/17/17 22:01 Dose: 5,000 units Ceftriaxone Sodium 1 gm/ (Sodium Chloride) 100 mls @ 100 mls/hr IVPB DAILY [facility] Last Admin: 12/21/17 10:13 Dose: 100 mls/hr Lorazepam (Ativan) 1 mg IVP Q6H PRN PRN Reason: Symptoms of alcohol withdrawl Pantoprazole Sodium (Protonix Ec Tab) 40 mg PO DAILY [facility] Last Admin: 12/21/17 10:14 Dose: 40 mg Tamsulosin HCl (Flomax) 0.4 mg PO DAILY [facility] Last Admin: 12/21/17 10:14 Dose: 0.4 mg - Labs Labs: 12/21/17 08:39 12/21/17 08:39 PT 11.3 SECONDS (9.7-12.2) 12/14/17 21:41 INR 1.0 12/14/17 21:41 APTT 26 SECONDS (21-34) 12/14/17 21:41 - Additional Findings Additional findings: - Constitutional Appears: No Acute Distress - Head Exam Head Exam: ATRAUMATIC, NORMAL INSPECTION - Eye Exam Eye Exam: EOMI - ENT Exam ENT Exam: Mucous Membranes Moist - Respiratory Exam Respiratory Exam: Clear to Ausculation Bilateral, NORMAL BREATHING PATTERN. absent: Rhonchi, Wheezes, Respiratory Distress - Cardiovascular Exam Cardiovascular Exam: REGULAR RHYTHM, +S1, +S2 - GI/Abdominal Exam GI & Abdominal Exam: Soft, Normal Bowel Sounds. absent: Distended, Firm, Tenderness - Exam Exam: s/p TURP -Extremities Exam Extremities Exam: Normal Inspection. absent: Pedal Edema, Tenderness - Neurological Exam Neurological Exam: Alert, Awake, Oriented x3 - Psychiatric Exam Psychiatric exam: Normal Affect, Normal Mood - Skin Skin Exam: Dry, Intact, Normal Color, Warm Assessment and Plan - Assessment and Plan (Free Text) Plan: Plan: 67 yo male with a PMHx of colon CA s/p resection w/ Dr. Bro in July 2017 coming in with urinary retention and found to be hyponatremic 124 in the ED. Urinary Retention * Urology consulted- Dr. Carlos Iqbal - help appreciated * Continue Rocephin 1gm IV Q24 (started on 12/19/17) * Total PSA 14.5, Free PSA 1.4 (12/07/17) * s/p TURP w/Dr. Iqbal (12/18/17) * Ryan catheter removed on 12/21/17. Hematuria present. Bladder scan performed and showed 526ml. Dr. Iqbal going to evaluate patient to determine if ryan needs to be placed again. Beer Potomania, Hx Alcohol Abuse, Hyponatremia * Na 124, improving, Na 136 on 12/16 * Serum 298, urine osm 160, urine random Na 28 * Continue to monitor * Continue Ativan 1mg IVP Q6H Symptoms of Alcohol Withdrawal History of HTN * Continue home meds: Norvasc 5mg PO daily * Lisinopril 20mg PO daily (hold for hyponatremia), HCTZ 25mg PO daily (hold for hyponatremia) * Currently normotensive, will continue to monitor Hx of colon CA s/p resection * Resection done in July [address] Dave Prophylactic Measures * GI PPX: Protonix 40mg PO daily * DVT PPX: SCDs, Heparin Q12 (held) * Colace 100mg PO TID <Jose Miguel Ambrose Jr. - Last Filed: 12/21/17 19:36> Objective - Vital Signs/Intake and Output Vital Signs (last 24 hours): Temp Pulse Resp BP Pulse Ox 97.9 F 81 20 150/83 96 12/21/17 16:36 12/21/17 16:36 12/21/17 16:36 12/21/17 16:36 12/21/17 16:36 Intake and Output: 12/21/17 12/22/17 18:59 06:59 Intake Total 1100 Output Total 500 Balance 600 - Medications Medications: Current Medications Amlodipine Besylate (Norvasc) 5 mg PO DAILY [facility] Last Admin: 12/21/17 10:14 Dose: 5 mg Docusate Sodium (Colace) 100 mg PO TID [facility] Last Admin: 12/21/17 18:13 Dose: 100 mg Heparin Sodium (Porcine) (Heparin) 5,000 units SC Q12 [facility] Last Admin: 12/17/17 22:01 Dose: 5,000 units Ceftriaxone Sodium 1 gm/ (Sodium Chloride) 100 mls @ 100 mls/hr IVPB DAILY [facility] Last Admin: 12/21/17 10:13 Dose: 100 mls/hr Lorazepam (Ativan) 1 mg IVP Q6H PRN PRN Reason: Symptoms of alcohol withdrawl Pantoprazole Sodium (Protonix Ec Tab) 40 mg PO DAILY [facility] Last Admin: 12/21/17 10:14 Dose: 40 mg Tamsulosin HCl (Flomax) 0.4 mg PO DAILY [facility] Last Admin: 12/21/17 10:14 Dose: 0.4 mg - Labs Labs: 12/21/17 08:39 12/21/17 08:39 PT 11.3 SECONDS (9.7-12.2) 12/14/17 21:41 INR 1.0 12/14/17 21:41 APTT 26 SECONDS (21-34) 12/14/17 21:41 Attending/Attestation - Attestation I have personally seen and examined this patient.: Yes I have fully participated in the care of the patient.: Yes I have reviewed all pertinent clinical information, including history, physical exam and plan: Yes Notes (Text): 12/21/17 19:36 Agree with resident note and plan of care
[2017-12-22 00:19] VITALS: O2SAT 97
[2017-12-22 08:33] LABS: BASO % 0.6 % (0.0-2.0); EOS # 0.2 K/uL (0.0-0.7); EOS % 2.9 % (0.0-4.0); LYMPH # 1.9 K/uL (1.0-4.3); LYMPH % 26.5 % (20.0-40.0); MEAN CELL VOLUME 90.9 fL (80.0-94.0); MEAN CORPUSCULAR HEMOGLOBIN 32.2 pg (27.0-31.0); MEAN CORPUSCULAR HGB CONC 35.5 g/dL (33.0-37.0); MEAN PLATELET VOLUME 9.7 fL (7.2-11.7); MONO # 0.7 K/uL (0.0-0.8); NEUT # 4.4 K/uL (1.8-7.0); RBC 4.03 Mil/uL (4.40-5.90); WHITE BLOOD COUNT 7.2 K/uL (4.8-10.8)
[2017-12-22 08:57] VITALS: BP 124/71; PULSE 71; TEMP 98
[2017-12-22] MEDS: Pantoprazole 40 mg EC Tab PO SCH (10:42)
--- NOTE | 2017-12-25 18:11 | CP.PCM.DIS ---
Provider - Provider Date of Admission: 12/14/17 22:07 Attending physician: Jose iMguel Ambrose Jr, MD Consults: Urology: Dr. Iqbal Time Spent in preparation of Discharge (in minutes): 45 Hospital Course - Lab Results Lab Results: Micro Results 12/17/17 12:17 Urine Urine Culture - Final No Growth (<1,000 CFU/ML) Most Recent Lab Values WBC 7.2 K/uL (4.8-10.8) 12/22/17 08:26 RBC 4.03 Mil/uL (4.40-5.90) L 12/22/17 08:26 Hgb 13.0 g/dL (12.0-18.0) 12/22/17 08: Hct 36.7 % (35.0-51.0) 12/22/17 08: MCV 90.9 fL (80.0-94.0) 12/22/17 08: MCH 32.2 pg (27.0-31.0) H 12/22/17 08: MCHC 35.5 g/dL (33.0-37.0) 12/22/17 08:26 RDW 13.0 % (11.5-14.5) 12/22/17 08:26 Plt Count 211 K/uL (130-400) 12/22/17 08:26 MPV 9.7 fL (7.2-11.7) 12/22/17 08:26 Neut % (Auto) 61.0 % (50.0-75.0) 12/22/17 08: Lymph % (Auto) 26.5 % (20.0-40.0) 12/22/17 08: [place] % (Auto) 9.0 % (0.0-10.0) 12/22/17 08: Eos % (Auto) 2.9 % (0.0-4.0) 12/22/17 08: Baso % (Auto) 0.6 % (0.0-2.0) 12/22/17 08:26 Neut # 4.4 K/uL (1.8-7.0) 12/22/17 08: Lymph # 1.9 K/uL (1.0-4.3) 12/22/17 08: [place] # 0.7 K/uL (0.0-0.8) 12/22/17 08:26 Eos # 0.2 K/uL (0.0-0.7) 12/22/17 08:26 Baso # 0.0 K/uL (0.0-0.2) 12/22/17 08:26 PT 11.3 SECONDS (9.7-12.2) 12/14/17 21:41 INR 1.0 12/14/17 21:41 APTT 26 SECONDS (21-34) 12/14/17 21:41 Sodium 137 mmol/L (132-148) 12/21/17 08:39 Potassium 4.1 mmol/L (3.6-5.2) 12/21/17 08:39 Chloride 101 mmol/L (98-107) 12/21/17 08:39 Carbon Dioxide 28 mmol/L (22-30) 12/21/17 08:39 Anion Gap 12 (10-20) 12/21/17 08:39 BUN 14 mg/dL (9-20) 12/21/17 08:39 Creatinine 0.9 mg/dL (0.8-1.5) 12/21/17 08:39 Est GFR ( Amer) > 60 12/21/17 08:39 Est GFR (Non-Af Amer) > 60 12/21/17 08:39 Random Glucose 92 mg/dL (75-110) 12/21/17 08:39 Serum Osmolality 298 mosm/kg (272-300) 12/14/17 22:24 Calcium 8.9 mg/dl (8.6-10.4) 12/21/17 08:39 Phosphorus 3.3 mg/dL (2.5-4.5) 12/17/17 08:12 Magnesium 1.8 mg/dL (1.6-2.3) 12/17/17 08:12 Total Bilirubin 0.6 mg/dL (0.2-1.3) 12/21/17 08:39 AST 31 U/L (17-59) 12/21/17 08:39 ALT 55 U/L (21-72) 12/21/17 08:39 Alkaline Phosphatase 68 U/L (38-126) 12/21/17 08:39 Total Protein 6.9 g/dL (6.3-8.3) 12/21/17 08:39 Albumin 3.7 g/dL (3.5-5.0) 12/21/17 08:39 Globulin 3.2 gm/dL (2.2-3.9) 12/21/17 08:39 Albumin/Globulin Ratio 1.1 (1.0-2.1) 12/21/17 08:39 Prostate Specific Ag 6.26 ng/mL (0.00-4.0) H 12/17/17 09:06 Urine Color Straw (YELLOW) 12/14/17 21:41 Urine Clarity Clear (Clear) 12/14/17 21:41 Urine pH 6.0 (5.0-8.0) 12/14/17 21:41 Ur Specific [place] 1.005 (1.003-1.030) 12/14/17 21:41 Urine Protein Negative mg/dL (NEGATIVE) 12/14/17 21:41 Urine Glucose (UA) Normal mg/dL (Normal) 12/14/17 21:41 Urine Ketones Negative mg/dL (NEGATIVE) 12/14/17 21:41 Urine Blood 2+ (NEGATIVE) H 12/14/17 21:41 Urine Nitrate Negative (NEGATIVE) 12/14/17 21:41 Urine Bilirubin Negative (NEGATIVE) 12/14/17 21:41 Urine Urobilinogen Normal mg/dL (0.2-1.0) 12/14/17 21:41 Ur Leukocyte Esterase Neg [place]/uL (Negative) 12/14/17 21:41 Urine WBC (Auto) < 1 /hpf (0-5) 12/14/17 21:41 Urine RBC (Auto) 20 /hpf (0-3) H 12/14/17 21:41 Hyaline Casts 0-2 /lpf (0-2) 12/14/17 21:41 Urine Osmolality 160 mosm/kg (300-1000) L 12/14/17 22:24 Ur Random Sodium 28 mmol/L 12/14/17 22:24 Blood Type B POSITIVE 12/17/17 12:06 Antibody Screen Negative 12/17/17 12:06 - Hospital Course Hospital Course: CC: Urinary Retention HPI: 67 yo male with a PMHx of colon CA s/p resection w/ Dr. Dave in July 2017 coming in with urinary retention and found to be hyponatremic 124 in the ED. Patient was recently discharged from [facility] on with ryan in place and was instructed to follow up with Dr. Carlos Iqbal in his office. He saw him morning where the ryan was removed. He was instructed if he could not urinate by 7pm to come to the ED. No other complaints at this time. Denied fever, chills, headache, chest pain, SOB, abdominal pain, n/v/d/c, or urinary symptoms. 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 Finney Oncologist: Dr. Reese [facility] Course: Patient was admitted on 12/14/17 for Urinary retention and hyponatremia. In the ED, labs were drawn, ryan catheter placed, and Urology, Dr. Iqbal, was consulted. Patient was found to be hyponatremic in the ED and placed on fluid restriction. Patient has history of alcohol abuse, and thus, placed on ativan for alcohol withdrawal symptoms. Patient's home medications for hypertension were continued and vitals monitored throughout hospital course. Patient was started on rocephin daily. Patient went for TURP with Dr. Iqbal on 12/18/17. Patient's catheter was removed on 12/21/17. Post catheter removal, patient had hematuria and mild pain. Patient's urine output was monitored and patient was bladder scanned on 12/21/17. Patient was seen and examined at bedside in the morning of 12/22/17, in no acute distress. Hematuria and discomfort resolved. Patient stable for discharge as per Dr. Ambrose and Dr. Iqbal. Patient must follow up with PMD and urologist within 1 week of discharge. This is a brief summary of the hospital course. Please see EMR for more details. Discharge Exam - Head Exam Head Exam: ATRAUMATIC, NORMAL INSPECTION - Eye Exam Eye Exam: EOMI, Normal appearance - ENT Exam ENT Exam: Mucous Membranes Moist - Respiratory Exam Respiratory Exam: Clear to PA & Lateral, NORMAL BREATHING PATTERN, UNREMARKABLE. absent: Rhonchi, Wheezes, Respiratory Distress - Cardiovascular Exam Cardiovascular Exam: REGULAR RHYTHM, +S1, +S2 - GI/Abdominal Exam GI & Abdominal Exam: Normal Bowel Sounds, Soft, Unremarkable. absent: Distended , Firm, Tenderness - Exam Additional comments: s/p TURP; no discharge, hematuria noted. - Extremities Exam Extremities exam: normal inspection - Neurological Exam Neurological exam: Alert, Oriented x3 - Psychiatric Exam Psychiatric exam: Normal Affect, Normal Mood - Skin Skin Exam: Dry, Intact, Normal Color, Warm Discharge Plan - Discharge Medications Prescriptions: Docusate [Colace] 100 mg PO TID 30 Days cap Levofloxacin [Levaquin] 500 mg PO DAILY 7 Days tablet - Follow Up Plan Condition: GOOD Disposition: HOME/ ROUTINE Instructions: Levofloxacin (By mouth), Urinary Retention in Men (GEN), Hyponatremia (DC) Additional Instructions: Patient is stable for discharge to home as per Dr. Iqbal and Dr. Ambrose. Patient must continue home medications. Patient must take new medications as prescribed: 1. Levaquin 500mg PO daily- take 1 tablet by mouth daily for 7 days. 2. Colace 100mg PO TID- take 1 tablet by mouth three times a day. Patient must follow up with Urologist, Dr. Iqbal, within 1-2 weeks of discharge. Patient must follow up with PMD within 1-2 weeks of discharge. If symptoms reoccur or worsen, patient should return to the ED. Referrals: Jose Miguel Ambrose Jr., MD [Medical Doctor] - Hien Iqbal MD [Staff Provider] -
== END 2017-12-22 15:55 | disposition home or self-care (01) | DRG 713 ==
LOC: C.ER 20:51 → C.9E 22:07 → C.5S 12-15 06:50
PROVIDERS: ADMIT Internal Medicine; ATTEND Internal Medicine
PROC: 0VT08ZZ Resection of Prostate, Via Natural or Artificial Opening Endoscopic (ICD-10-PCS; principal; 2017-12-18 10:36)
DX: N40.1 Benign prostatic hyperplasia with lower urinary tract symptoms (principal); E87.1 Hypo-osmolality and hyponatremia; F10.230 Alcohol dependence with withdrawal, uncomplicated; R33.8 Other retention of urine; I10 Essential (primary) hypertension; Z87.891 Personal history of nicotine dependence; Z85.038 Personal history of other malignant neoplasm of large intestine; Y90.9 Presence of alcohol in blood, level not specified